=== PATIENT | female | born 1985 | race Caucasian/White ===

== ENCOUNTER → 2016-12-15 | Outpatient (CLI) | payer MEDICAID | LOC: RAD 13:00 | PROVIDERS: ATTEND Specialist | DX: C48.0 Malignant neoplasm of retroperitoneum (principal) | CPT/HCPCS: 71260; 74177 ==

== ENCOUNTER → 2017-04-10 | Outpatient (CLI) | payer MEDICAID | LOC: RAD 12:12 | PROVIDERS: ATTEND Specialist | DX: C48.0 Malignant neoplasm of retroperitoneum (principal) | CPT/HCPCS: 71260; 74177 ==

== ENCOUNTER → 2017-04-26 | Outpatient (CLI) | payer MEDICAID ==
--- NOTE | 2017-04-27 08:26 | RADIOLOGY REPORT (SQ) ---
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 CONTRAST TYPE AND DOSE: 20 mL Prohance. RENAL FUNCTION: GFR > 60. LIMITATIONS: None. FINDINGS: LIVER: In the posterior right lobe sub- diaphragmatic surface for, segment 7, a 2 x 1.7 cm mass is present with lobular contour, increased T2 and decreased T1 signal with spotty contrast enha ncement. This is new compared to prior imaging from 2015 and similar compared to CT 04/10/2017. This worrisome for a metastatic nodule. More inferiorly in the right lobe liver along segment 6, a subcentimeter nodule is present which is s imilar compared to prior studies. 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 Remainder of the liver is otherwise unremarkable. There is ferromagnetic artifact from surgical clip s along the hepatic vena cava. SPLEEN: Normal size. No focal lesions. PANCREAS: No masses. No adjacent inflammation or peripancreatic fluid collections. Pancreatic duct no t dilated. GALLBLADDER: Surgically absent ADRENAL GLANDS: No significant masses or asymmetry. RIGHT KIDNEY AND URETER: Surgically absent LEFT KIDNEY AND URETER: No masses. No hydronephrosis. AORTA AND VESSELS: No aneurysm. No dissection. Renal arteries, SMA, celiac without stenosis. There i s a prominent left gonadal vein, related to surgical resection of a short segment of the inferior charlene a cava at the right nephrectomy bed. This is similar compared to prior studies. RETROPERITONEUM: No retroperitoneal adenopathy, hemorrhage or masses. BOWEL: Limited visualization. ABDOMINAL WALL AND PERITONEUM: No hernias. No free fluid. BONES: There is fatty change in the rightward half of the T12 through L2 vertebral bodies related to radiation therapy in the right nephrectomy bed OTHER: No other significant finding. IMPRESSION: 2 x 1.7 cm liver mass worrisome for metastatic disease. TECHNICAL DOCUMENTATION: JOB ID: [id number]- All Rights Reserved
== END ==
LOC: RAD 16:03
PROVIDERS: ATTEND Specialist
DX: C48.0 Malignant neoplasm of retroperitoneum (principal)
CPT/HCPCS: 74183; A9576

== ENCOUNTER → 2017-06-30 | Outpatient (CLI) | payer MEDICARE, MEDICAID ==
--- NOTE | 2017-07-02 14:19 | RADIOLOGY REPORT (SQ) ---
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 TECHNIQUE: Blood glucose level was verified. Above dose of FDG was injected intravenously. 2-D seg mented attenuation correction images were obtained from the base of the skull to the midthighs. Nonc ontrast CT images were obtained for attenuation correction and fusion with emission images. CT image s were performed without oral or intravenous contrast and are not sensitive for parenchymal lesions. A series of overlapping emission PET images were obtained. [facility] by the radiologist. Images stored on PACS. LIMITATIONS: None. FINDINGS: HEAD AND NECK: No areas of abnormal metabolic activity in the soft tissues of the head and neck. CHEST: No areas of abnormal metabolic activity in the chest. ABDOMEN AND PELVIS: In the right lobe liver, fiducial markers are present. Adjacent to the fiducial markers, a 2.8 x 2.3 cm nodule is present on axial image 104 with SUV of 11.1 (was 1.8 x 1.5 cm in s ize on 04/10/2017 CT). PROXIMAL LOWER EXTREMITIES: No areas of abnormal metabolic activity in the soft tissues of the lower extremities. BONES: There is a new lytic destructive lesion in the left acetabular roof 1.2 x 0.8 cm in diameter o n axial image 198 with SUV of 8. ADDITIONAL CT FINDINGS: Right permanent central line tip superior vena cava. Post right nephrectomy. Prominence of the azygos vein and christie azygous vein in the lower chest and upper abdomen post parti al resection of the IVC, right permanent central line tip superior vena cava OTHER: Baseline liver activity 2.0 SUV, blood pool activity 1.6 SUV IMPRESSION: Increase in size of hypermetabolic right lobe liver lesion since 04/10/2017 New hypermetabolic lytic lesion in the left acetabular roof TECHNICAL DOCUMENTATION: JOB ID: [id number]- All Rights Reserved
== END ==
LOC: RAD 11:47
PROVIDERS: ATTEND Internal Medicine
DX: C48.0 Malignant neoplasm of retroperitoneum (principal)
CPT/HCPCS: 78815; A9552

== ENCOUNTER → 2017-11-05 | Outpatient (CLI) | payer MEDICARE, MEDICAID ==
--- NOTE | 2017-11-06 18:37 | RADIOLOGY REPORT (SQ) ---
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 TECHNIQUE: Blood glucose level was verified. Above dose of FDG was injected intravenously. 2-D seg mented attenuation correction images were obtained from the base of the skull to the midthighs. Nonc ontrast CT images were obtained for attenuation correction and fusion with emission images. CT image s were performed without oral or intravenous contrast and are not sensitive for parenchymal lesions. A series of overlapping emission PET images were obtained. Images reviewed and manipulated at [facility] work station by the radiologist. Images stored on PACS. LIMITATIONS: None. FINDINGS: HEAD AND NECK: No areas of abnormal metabolic activity in the soft tissues of the head and neck. CHEST: No areas of abnormal metabolic activity in the chest. ABDOMEN AND PELVIS: In the posterior right lobe liver, radiotherapy markers are present. An adjacent 1.1 cm nodule is present with SUV of 3.1 (was 2.8 x 2.3 cm, SUV 11.1 on 06/30/2017 PET-CT). PROXIMAL LOWER EXTREMITIES: No areas of abnormal metabolic activity in the soft tissues of the lower extremities. BONES: The left acetabular roofs lytic lesion currently measures 1.5 x 1.5 cm in size with SUV 1.3 (w as 1.2 x 0.8 cm in size with SUV of 8 on 06/30/2017). ADDITIONAL CT FINDINGS: Right-sided permanent central line tip superior vena cava. Right nephrectomy and partial resection of the inferior vena cava with enlarged azygos and christie azygous veins in the l ower chest and upper abdomen. OTHER: Liver background activity 1.5 SUV. Blood pool background activity 1.2 SUV IMPRESSION: Treatment response of right lobe liver and left acetabular roof metastatic lesions TECHNICAL DOCUMENTATION: JOB ID: [id number] [employer]- All Rights Reserved
== END ==
LOC: RAD 17:43
PROVIDERS: ATTEND Internal Medicine
DX: C48.0 Malignant neoplasm of retroperitoneum (principal)
CPT/HCPCS: 78815; A9552

== ENCOUNTER 2017-12-26 14:04 | Outpatient (CLI) | payer MEDICARE, MEDICAID ==
[~2017-12-26 14:04] MED LIST: FERRIC CARBOXYMALTOSE 750 MG in NORMAL SALINE 250 ML IV PRN; NORMAL SALINE 1000 ML 1,000 ML IV PRN; NORMAL SALINE 250 ML IV PRN
[2017-12-26 14:28] VITALS: BP 100/73
== END 2017-12-26 15:40 | disposition home or self-care (01) ==
LOC: II 14:04 → 5TH 14:29 → II 15:40
PROVIDERS: ATTEND Specialist
PROC: 3E0437Z Introduction of Electrolytic and Water Balance Substance into Central Vein, Percutaneous Approach (ICD-10-PCS; principal; 2017-12-26)
DX: E86.0 Dehydration (principal); C48.0 Malignant neoplasm of retroperitoneum
CPT/HCPCS: 96360; J1439; J7050

== ENCOUNTER 2018-01-21 22:31 | Emergency (ER) | payer MEDICARE, MEDICAID ==
[2018-01-21] MEDS ORDERED: HALOPERIDOL LACTATE INJ 5 MG/1 ML VIAL IV ONE (23:40)
[2018-01-21] MEDS ORDERED: NORMAL SALINE 1000 ML 1,000 ML IV ONE (23:40)
[2018-01-21] MEDS ORDERED: PROCHLORPERAZINE EDISYLATE INJ 10 MG/2 ML VIAL IV ONE (23:41)
--- NOTE | 2018-01-21 23:42 | ER Document Report ---
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 Patient arrives by EMS complaining of nausea and whole body pain including a headache. She does describe a dull, constant throbbing headache that is worsened by lights, sounds, movement, and has been associated with vomiting. She states the headache has been gradual in onset and progressively worsened over the last 24 hours. She notes a history of similar headaches in the past. She has not tried anything to improve or worsen her pain. She does admit that she is out of her chronic pain medications and is not able to refill them until tomorrow which is 1 of her reasons for coming to the emergency department today. She has not spoken to her primary care or oncology doctors regarding today's concerns. TRAVEL OUTSIDE OF THE [place] IN LAST 30 DAYS: No - Related Data Allergies/Adverse Reactions: ibuprofen [From Advil] Allergy (Severe, Verified 10/16/15 10:27) RASH tramadol [Tramadol] Adverse Reaction (Severe, Verified 10/16/15 10:27) dizzy Past Medical History - General Information source: Patient - Social History Smoking Status: Never Smoker Chew tobacco use (# tins/day): No Frequency of alcohol use: None Drug Abuse: None Lives with: Family Family History: Reviewed & Not Pertinent Patient has suicidal ideation: No Patient has homicidal ideation: No - Past Medical History Cardiac Medical History: Denies: Hx Coronary Artery Disease, Hx Heart Attack, Hx Hypertension Pulmonary Medical History: Denies: Hx Asthma, Hx Bronchitis, Hx COPD, Hx Pneumonia Neurological Medical History: Denies: Hx Cerebrovascular Accident, Hx Seizures Renal/ Medical History: Denies: Hx Peritoneal Dialysis Musculoskeltal Medical History: Denies Hx Arthritis Past Surgical History: Reports: Hx Cholecystectomy, Hx Kidney (Renal Surgery) - Right kidney removed, Hx Tubal Ligation - Immunizations Immunizations up to date: Yes Hx Diphtheria, Pertussis, Tetanus Vaccination: Yes Review of Systems - Review of Systems Notes: Constitutional: Negative for fever. HENT: Negative for sore throat. Eyes: Negative for visual changes. Cardiovascular: Negative for chest pain. Respiratory: Negative for shortness of breath. Gastrointestinal: Negative for abdominal pain, vomiting or diarrhea. Genitourinary: Negative for dysuria. Musculoskeletal: Positive for chronic Skin: Negative for rash. Neurological: Positive for headache 10 point ROS negative except as marked above and in HPI. Physical Exam - Vital signs Vitals: Temp Pulse Resp BP Pulse Ox 98.8 F 88 20 111/77 60 L 01/21/18 22:36 01/21/18 22:36 01/21/18 22:36 01/21/18 22:36 01/21/18 22:36 Interpretation: Normal - Documented hypoxia is not accurate Notes: PHYSICAL EXAMINATION: GENERAL: Appears moderately uncomfortable but in no acute distress HEAD: Atraumatic, normocephalic. EYES: Pupils equal round and reactive to light, extraocular movements intact, sclera anicteric, conjunctiva are normal. ENT: nares patent, oropharynx clear without exudates. Moist mucous membranes. NECK: Normal range of motion, supple without lymphadenopathy LUNGS: Breath sounds clear to auscultation bilaterally and equal. No wheezes rales or rhonchi. HEART: Regular rate and rhythm without murmurs ABDOMEN: Soft, nontender, normoactive bowel sounds. No guarding, no rebound. No masses appreciated. EXTREMITIES: Normal range of motion, no pitting or edema. No cyanosis. NEUROLOGICAL: Face symmetric. Tongue protrudes midline. Extraocular motions intact. Pupils are 2 mm and equally reactive. Normal speech, normal gait. 5 out of 5 strength in both the distal and proximal upper and lower extremities bilaterally. Sensation is grossly intact throughout. Finger to nose testing normal. Pronator drift normal. PSYCH: Moderately anxious SKIN: Warm, Dry, normal turgor, no rashes or lesions noted. Course - Re-evaluation Re-evalutation: 01/21/18 23:42 Presentation of a headache that appears to be most consistent with tension versus migrainous type headache. Headache was not maximal in onset, patient has no focal neurologic deficits, no nuchal rigidity, vital signs within normal limits, no papilledema, and patient is overall well in appearance. Based on clinical history and examination I do not suspect an acute subarachnoid hemorrhage, dural venous sinus thrombosis, acute meningitis, or intercranial mass. Patient does have a history of multiple malignancies in the past and so I will obtain a CT of the head as a precautionary measure although I do have a very low clinical suspicion for a metastatic disease as the etiology of her headache today. Will provide a migraine cocktail reassess the patient. 01/22/18 00:37 Patient has had improvement of her headache and although she does report some ongoing headache she is actually asleep when I walk into the room. I have informed her that she go home and try to rest, and follow-up with primary care doctor in the morning. CT of the head does not demonstrate any evidence of intracranial metastases and I do have a quite low clinical suspicion for this and do not believe acute MRI imaging is indicated. I have however inform the patient that if her headache does persist however she will need to follow-up with her primary care doctor for an MRI of the brain to further clarify. At this time will discharge with return precautions and follow-up recommendations. Verbal discharge instructions given a the bedside and opportunity for questions given. Medication warnings reviewed. Patient is in agreement with this plan and has verbalized understanding of return precautions and the need for primary care follow-up in the next 24-72 hours. - Vital Signs Vital signs: Temp Pulse Resp BP Pulse Ox 98.8 F 88 20 111/77 60 L 01/21/18 22:36 01/21/18 22:36 01/21/18 22:36 01/21/18 22:36 01/21/18 22:36 - Diagnostic Test Radiology reviewed: Image reviewed, Reports reviewed Radiology results interpreted by me: 01/22/18 00:30 CT head: No acute intracranial mass or bleed Discharge - Discharge Clinical Impression: Total body pain Headache Qualifiers: Headache type: unspecified Headache chronicity pattern: acute headache Intractability: not intractable Qualified Code(s): R51 - Headache Condition: Good Disposition: HOME, SELF-CARE Additional Instructions: You have been seen in the Emergency Department (ED) for a headache. Please use Tylenol (acetaminophen) as needed for symptoms, but only as written on the box. As we have discussed, please follow up with your primary care doctor as soon as possible regarding today's ED visit and your headache symptoms. Call your doctor or return to the ED if you have a worsening headache, sudden and severe headache, confusion, slurred speech, facial droop, weakness or numbness in any arm or leg, extreme fatigue, or other symptoms that concern you. Referrals: JOSE EDUARDO MARTINEZ MD [Primary Care Provider] - Follow up as needed
--- NOTE | 2018-01-22 00:18 | RADIOLOGY REPORT (SQ) ---
EXAM DESCRIPTION: CT HEAD WITHOUT CLINICAL HISTORY: headache, hx cancer COMPARISON: None available TECHNIQUE: Axial CT of the head obtained from the skull apex to the skull base without contrast. FINDINGS: No acute intracranial hemorrhage identified. No mass, mass effect, shift of the midline, abnormal extra-axial fluid collection or CT evidence of acute ischemic change identified. The ventricular system is unremarkable. No acute abnormalities of the supratentorial white matter, basal ganglia, cerebellum, or brainstem. The visualized paranasal sinuses and the mastoids are clear. No skull fracture identified. Visualized orbits and globes are unremarkable. DLP:1162.97 mGy-cm IMPRESSION: 1. No acute intracranial abnormality identified. 2. No intracranial mass or evidence of intracranial metastatic disease by noncontrast CT criteria. If this remains a concern contrast-enhanced MRI of the brain would provide more complete characterization. This exam was performed according to our departmental dose-optimization program, which includes automated exposure control, adjustment of the mA and/or kV according to patient size and/or use of iterative reconstruction technique.
[2018-01-22 00:53] VITALS: BP 108/67
== END 2018-01-22 00:53 | disposition home or self-care (01) ==
LOC: ER 22:31
DX: M79.1 Myalgia (principal); G89.29 Other chronic pain; R51 Headache; Z90.49 Acquired absence of other specified parts of digestive tract; Z98.51 Tubal ligation status; Z90.5 Acquired absence of kidney
CPT/HCPCS: 99284; 96361; 96374; 96375; 70450; J1630; J0780; J7030

== ENCOUNTER → 2018-02-11 | Outpatient (CLI) | payer MEDICARE, MEDICAID ==
--- NOTE | 2018-02-12 19:34 | RADIOLOGY REPORT (SQ) ---
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 TECHNIQUE: Blood glucose level was verified. Above dose of FDG was injected intravenously. 2-D seg mented attenuation correction images were obtained from the base of the skull to the midthighs. Nonc ontrast CT images were obtained for attenuation correction and fusion with emission images. CT image s were performed without oral or intravenous contrast and are not sensitive for parenchymal lesions. A series of overlapping emission PET images were obtained. Images reviewed and manipulated at [facility] work station by the radiologist. Images stored on PACS. LIMITATIONS: None. FINDINGS: HEAD AND NECK: There is bilateral pharyngeal tonsil activity without enlargement. Tonsils have SUV of the T2. Question inflammation. CHEST: Multiple new tiny lung nodules are present. The largest of these is 8 mm in size left upper l obe image 76 which demonstrates faint metabolic activity. Next largest is 6 mm in the left lower lob e image 86. No metabolically active mediastinal adenopathy. ABDOMEN AND PELVIS: Radiotherapy treatment markers are present in the posterior right lobe liver. A 3 cm hypodense nodule between the markers is present on axial image 112 with SUV 3.1 (was 1.1 cm in s ize with SUV 3.1 on 11/05/2017). PROXIMAL LOWER EXTREMITIES: No areas of abnormal metabolic activity in the soft tissues of the lower extremities. BONES: Sclerotic Lesion right acetabular roof 1.5 cm in size, SUV 2.7. This is new compared to prior studies. Left acetabular roof lytic lesion is non metabolic on today's study. ADDITIONAL CT FINDINGS: Right permanent central line tip superior vena cava. Old right nephrectomy w ith resection of a portion of the inferior vena cava and enlarged azygos and christie azygous veins in th e chest OTHER: Liver background activity 1.7 SUV. Blood pool activity 1.3 SUV IMPRESSION: Multiple new tiny lung nodules are present Slight increase in size of liver lesions compared to previous PET-CT, stable metabolic activity TECHNICAL DOCUMENTATION: JOB ID: [id number]- All Rights Reserved Reading location - IP/workstation name: [email or web address]
== END ==
LOC: RAD 16:46
PROVIDERS: ATTEND Internal Medicine
DX: C48.0 Malignant neoplasm of retroperitoneum (principal)
CPT/HCPCS: 78815; A9552

== ENCOUNTER → 2018-03-19 | Outpatient (CLI) | payer MEDICAID, MEDICARE ==
--- NOTE | 2018-03-19 16:14 | RADIOLOGY REPORT (SQ) ---
EXAM DESCRIPTION: CT CHEST WITH COMPLETED DATE/TIME: 03/19/2018 3:52 pm REASON FOR STUDY: MALIGNANT NEOPLASM OF RETROPERITONEUM (C48.0) C48.0 MALIGNANT NEOPLASM OF RETROPE RITONEUM COMPARISON: 04/10/2017. Correlation: PET-CT 02/11/2018. TECHNIQUE: CT scan of the chest performed using helical scanning technique with dynamic intravenous contrast injection. Images reviewed with lung, soft tissue and bone windows. Reconstructed coronal and sagittal MPR images reviewed. All images stored on PACS. All CT scanners at this facility use dose modulation, iterative reconstruction, and/or weight based d osing when appropriate to reduce radiation dose to as low as reasonably achievable (ALARA). [facility]: Dose Right [facility]: CareDose [facility]: Dose Right [facility]: Teradose 4D [facility]: [email or web address] CONTRAST TYPE AND DOSE: See separate report of the same date. RENAL FUNCTION: See separate report of the same date. RADIATION DOSE: . LIMITATIONS: None. FINDINGS: LUNGS AND PLEURA: There are scattered pulmonary nodules which are stable from the most rec ent PET-CT. There are new ground-glass nodules in the right lower lobe, the largest about 10 mm. Th ere is a new 5 mm nodule in the right upper lobe on image 40. No effusions. HILAR AND MEDIASTINAL STRUCTURES: No identified masses or abnormal nodes. HEART AND VASCULAR STRUCTURES: No aneurysm or dissection. No central pulmonary emboli. No pericardi al effusion. HARDWARE: Right-sided port with tip in the SVC. UPPER ABDOMEN: See separate report of the CT of the abdomen. THYROID AND OTHER SOFT TISSUES: No masses. No adenopathy. BONES: No significant finding. OTHER: No other significant finding. IMPRESSION: Several stable pulmonary nodules as well as new ground-glass nodules in the right lower lobe. No dominant mass. TECHNICAL DOCUMENTATION: JOB ID: [id number] Quality ID # [id number]: Final reports with documentation of one or more dose reduction techniques (e.g., Au tomated exposure control, adjustment of the mA and/or kV according to patient size, use of iterative reconstruction technique) 2010 [employer]- All Rights Reserved Reading location - IP/workstation name: [email or web address]
--- NOTE | 2018-03-19 16:44 | RADIOLOGY REPORT (SQ) ---
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 No oral contrast. Images reviewed with lung, soft tissue, and bone windows. Reconstructed coronal and sagittal MPR images reviewed. Delayed images for evaluation of the urinary system also acquired. All images stored on PACS. All CT scanners at this facility use dose modulation, iterative reconstruction, and/or weight based d osing when appropriate to reduce radiation dose to as low as reasonably achievable (ALARA). [facility]: Dose Right [facility]: CareDose [facility]: Dose Right [facility]: Teradose 4D [facility]: TempMine CONTRAST TYPE AND DOSE: contrast/concentration: Isovue 300.00 mg/ml; Total Contrast Delivered: 45.0 ml; Total Saline Delivered: 66.0 ml RENAL FUNCTION: Creatinine 1.0 BUN=18 RADIATION DOSE: CT Rad equipment meets quality standard of care and radiation dose reduction techniq ues were employed. CTDIvol: 4.4 - 5.6 mGy. DLP: 732 mGy-cm.. LIMITATIONS: None. FINDINGS: LOWER CHEST: Please see CT chest report. LIVER: The liver is heterogenous in appearance. There are multiple clips in the dome of the liver a nd subdiaphragmatic surface right hepatic lobe, new findings since the prior study. As on the prior examination, a hypoattenuated slightly enhancing lesion in the subdiaphragmatic right hepatic lobe wh ich appears slightly larger than on the prior study. It is difficult to measure the lesion due to th e artifact from the clips. A new slightly enhancing, hypoattenuated lesion along the medial aspect of the right hepatic lobe, ax ial image 34, series 3, measure 2.4 cm x 2.4 cm, considerations for this finding includes metastatic lesion. Hepatomegaly. The hepatic and portal veins appear patent. SPLEEN: Normal size. No focal lesions. PANCREAS: No masses. No significant calcifications. No adjacent inflammation or peripancreatic fluid collections. Pancreatic duct not dilated. GALLBLADDER: Prior cholecystectomy. ADRENAL GLANDS: No significant masses or asymmetry. RIGHT KIDNEY AND URETER: Prior right nephrectomy and stable post surgical changes. Stable collatera l vessels, azygos vein collaterals in the lower chest. LEFT KIDNEY AND URETER: No solid masses. No significant calcifications. No hydronephrosis or hydr oureter. AORTA AND VESSELS: No aneurysm. No dissection. Renal arteries, SMA, celiac without stenosis. RETROPERITONEUM: No retroperitoneal adenopathy, hemorrhage or masses. BOWEL AND PERITONEAL CAVITY: No masses or inflammatory changes. No free fluid or peritoneal masses. APPENDIX: Normal. PELVIS: Interval resolution of the complex left ovarian cyst. No free fluid. ABDOMINAL WALL: No masses. No hernias. BONES: New lucent lesions in the supra-acetabular regions bilaterally, slightly larger on the left r aises the question of metastatic disease. No evidence of acute fracture. OTHER: No other significant finding. IMPRESSION: 1 The previously described slightly enhancing, hypoattenuated lesion in the subdiaphragm atic surface right hepatic lobe appears slightly larger in size than on the examination dated 04/10/20 17. The margins of the lesion are partially obscured by new surrounding surgical clips. There is al so a new hypoattenuated, slightly enhancing right hepatic lobe lesion. These findings suggest metast atic disease. 2 New lucent lesions within the supra-acetabular regions, larger on the left. Considerations for the se findings include osseous metastatic lesions. 3 Interval resolution of the complex left ovarian cyst. 4. Additional stable findings as above. TECHNICAL DOCUMENTATION: JOB ID: [id number] Quality ID # [id number]: Final reports with documentation of one or more dose reduction techniques (e.g., Au tomated exposure control, adjustment of the mA and/or kV according to patient size, use of iterative reconstruction technique) 2010 [employer]- All Rights Reserved Reading location - IP/workstation name: [email or web address]
== END ==
LOC: RAD 12:58
PROVIDERS: ATTEND Internal Medicine
DX: C48.0 Malignant neoplasm of retroperitoneum (principal); R91.8 Other nonspecific abnormal finding of lung field
CPT/HCPCS: 71260; 74177

== ENCOUNTER → 2018-04-11 | Outpatient (CLI) | payer MEDICARE, MEDICAID ==
[2018-04-11 17:51] LABS: ALANINE AMINOTRANSFERASE 24 U/L (9-52); ALBUMIN 3.8 g/dL (3.5-5.0); ALKALINE PHOSPHATASE 107 U/L (38-126); ANION GAP 14 (5-19); ASPARTATE AMINO TRANSFERASE 32 U/L (14-36); BILIRUBIN,DIRECT 0.5 mg/dL (0.0-0.4); BILIRUBIN,TOTAL 0.6 mg/dL (0.2-1.3); BLOOD UREA NITROGEN 12 mg/dL (7-20); CALCIUM 8.8 mg/dL (8.4-10.2); CARBON DIOXIDE 24 mmol/L (22-30); CHLORIDE 107 mmol/L (98-107); GLUCOSE 77 mg/dL (75-110); POTASSIUM 4.1 mmol/L (3.6-5.0); SODIUM 145.1 mmol/L (137-145); TOTAL PROTEIN 6.5 g/dL (6.3-8.2)
== END ==
LOC: OD 16:01
PROVIDERS: ATTEND Internal Medicine
DX: C48.0 Malignant neoplasm of retroperitoneum (principal)
CPT/HCPCS: 36415; 80053

== ENCOUNTER 2018-04-13 08:53 | Inpatient (IN) | payer MEDICARE, MEDICAID ==
[2018-04-13] MEDS ORDERED: NORMAL SALINE 1000 ML 1,000 ML IV ONE (09:12)
[2018-04-13] MEDS ORDERED: ONDANSETRON HCL INJ/PF 4 MG/2 ML SDV IV ONE (09:12)
[2018-04-13] MEDS ORDERED: HALOPERIDOL LACTATE INJ 5 MG/1 ML VIAL IV ONE (09:26)
[2018-04-13 09:50] LABS: ABSOLUTE LYMPHOCYTES (AUTO) 1.7 10^3/uL (0.5-4.7); ABSOLUTE MONOCYTES (AUTO) 0.3 10^3/uL (0.1-1.4); ABSOLUTE NEUT (AUTO) 3.8 10^3/uL (1.7-8.2); BASOPHILS % (AUTO) 0.6 % (0-2); EOSINOPHILS % (AUTO) 0.4 % (0-6); HEMATOCRIT 42.9 % (36.0-47.0); HEMOGLOBIN 14.6 g/dL (12.0-15.5); LYMPHOCYTES % (AUTO) 28.4 % (13-45); MEAN CORPUSCULAR HEMOGLOBIN 31.6 pg (27.0-33.4); MEAN CORPUSCULAR HGB CONC 34.1 g/dL (32.0-36.0); MEAN CORPUSCULAR VOLUME 93 fl (80-97); MONOCYTES % (AUTO) 5.4 % (3-13); PLATELET COUNT 220 10^3/uL (150-450); RED BLOOD COUNT 4.61 10^6/uL (3.72-5.28); RED CELL DISTRIBUTION WIDTH 13.5 % (11.5-14.0); SEGMENTED NEUTROPHILS % (AUTO) 65.2 % (42-78); TOTAL CELLS COUNTED % (AUTO) 100 %; WHITE BLOOD COUNT 5.8 10^3/uL (4.0-10.5)
[2018-04-13 10:25] LABS: ALANINE AMINOTRANSFERASE 28 U/L (9-52); ALBUMIN 4.5 g/dL (3.5-5.0); ALKALINE PHOSPHATASE 106 U/L (38-126); ANION GAP 16 (5-19); ASPARTATE AMINO TRANSFERASE 27 U/L (14-36); BILIRUBIN,DIRECT 0.4 mg/dL (0.0-0.4); BILIRUBIN,TOTAL 0.5 mg/dL (0.2-1.3); BLOOD UREA NITROGEN 18 mg/dL (7-20); CALCIUM 9.9 mg/dL (8.4-10.2); CARBON DIOXIDE 25 mmol/L (22-30); CHLORIDE 107 mmol/L (98-107); GLUCOSE 122 mg/dL (75-110); LIPASE 97.4 U/L (23-300); POTASSIUM 3.7 mmol/L (3.6-5.0); TOTAL PROTEIN 7.8 g/dL (6.3-8.2)
[2018-04-13] MEDS ORDERED: HYDROMORPHONE HCL INJ/PF 2 MG/ML AMPULE IV ONE (11:26)
--- NOTE | 2018-04-13 11:46 | ER Document Report ---
ED GI/ - General Chief Complaint: Vomiting Stated Complaint: VOMITING Time Seen by Provider: 04/13/18 09:12 Mode of Arrival: Ambulatory Information source: Patient Notes: Pt is a 33 year old female who presents to the ER today for nasuea/vomiting x 2 days after starting a new trial of chemo last week. Pt has kidney cancer and liver metastasis, is a pt of Dr. Lindsay. She states she hasn't been able to keep anything down or stop vomiting since yesterday. Denies diarrhea. TRAVEL OUTSIDE OF THE [place] IN LAST 30 DAYS: No - Related Data Allergies/Adverse Reactions: ibuprofen [From Advil] Allergy (Severe, Verified 10/16/15 10:27) RASH tramadol [Tramadol] Adverse Reaction (Severe, Verified 10/16/15 10:27) dizzy Past Medical History - General Information source: Patient - Social History Smoking Status: Unknown if Ever Smoked Family History: Reviewed & Not Pertinent Patient has suicidal ideation: No Patient has homicidal ideation: No - Past Medical History Cardiac Medical History: Denies: Hx Coronary Artery Disease, Hx Heart Attack, Hx Hypertension Pulmonary Medical History: Denies: Hx Asthma, Hx Bronchitis, Hx COPD, Hx Pneumonia Neurological Medical History: Denies: Hx Cerebrovascular Accident, Hx Seizures Renal/ Medical History: Denies: Hx Peritoneal Dialysis Musculoskeltal Medical History: Denies Hx Arthritis Past Surgical History: Reports: Hx Cholecystectomy, Hx Kidney (Renal Surgery) - Right kidney removed, Hx Tubal Ligation - Immunizations Immunizations up to date: Yes Hx Diphtheria, Pertussis, Tetanus Vaccination: Yes Review of Systems - Review of Systems Constitutional: No symptoms reported EENT: No symptoms reported Cardiovascular: No symptoms reported Respiratory: No symptoms reported Gastrointestinal: See HPI Genitourinary: See HPI Female Genitourinary: No symptoms reported Musculoskeletal: No symptoms reported Skin: No symptoms reported Hematologic/Lymphatic: No symptoms reported Neurological/Psychological: No symptoms reported Physical Exam - Vital signs Vitals: Temp Pulse Resp BP Pulse Ox 98.5 F 77 19 123/89 H 100 04/13/18 09:44 04/13/18 09:44 04/13/18 09:44 04/13/18 09:44 04/13/18 09:44 - Notes Notes: PHYSICAL EXAMINATION: GENERAL: Actively vomiting, in mild acute distress. HEAD: Atraumatic, normocephalic. EYES: Pupils equal round and reactive to light, extraocular movements intact, sclera anicteric, conjunctiva are normal. ENT: ear canals without erythema or foreign body, TMs pearly kerns with good bony landmarks, nares patent, oropharynx clear without exudates. Moist mucous membranes. airway patent NECK: Normal range of motion, supple without lymphadenopathy LUNGS: CTAB and equal. No wheezes rales or rhonchi. HEART: Regular rate and rhythm without murmurs ABDOMEN: Soft, no tenderness. No guarding, no rebound BACK: no vertebral tenderness, normal ROM GI/: no CVA tenderness EXTREMITIES: Normal range of motion, no pitting edema. No cyanosis. NEUROLOGICAL: Cranial nerves grossly intact. Normal sensory/motor exams. PSYCH: Normal mood, normal affect. SKIN: Warm, Dry, normal turgor, no rashes or lesions noted Course - Re-evaluation Re-evalutation: 04/13/18 11:45 Nena Johnson, nurse practitioner hospitalist accepts admission at this time, Dr. Barnett would like her admitted for at least 24 hours for IV fluid resuscitation. Patient has not vomited since being given Zofran and Haldol. She does continue to complain of a headache. Dilaudid ordered. Lab work unremarkable today. 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
[2018-04-13] MEDS ORDERED: PROMETHAZINE HCL INJ 25 MG/1 ML VIAL IV PRN (13:04)
[2018-04-13] MEDS ORDERED: HYDROMORPHONE HCL INJ/PF 2 MG/ML AMPULE IV PRN (13:13)
[2018-04-13] MEDS ORDERED: ENOXAPARIN SODIUM INJ 30 MG/0.3 ML DISP.SYRIN SUBCUT ONE (14:00)
[2018-04-13] MEDS: NORMAL SALINE 1000 ML 1,000 ML IV PRN ×2 (15:53→22:09)
[2018-04-13] MEDS ORDERED: ALPRAZOLAM 0.25 MG TABLET PO PRN (16:49)
[2018-04-13] MEDS ORDERED: (PENDING PHARMACY ID) (Ondansetron [Ondansetron Odt] 8 MG) SL PRN (16:49)
--- NOTE | 2018-04-13 16:49 | PDOC H&P ---
History of Present Illness Admission Date/PCP: 04/13/18 12:37 JOSE EDUARDO MARTINEZ MD Patient complains of: Headache. Nausea and vomiting. History of Present Illness: CAMILA DAWN is a 33 year old female who presents to the emergency department with a one-day history of headache, nausea, and vomiting. She states that her symptoms started shortly after receiving chemotherapy. 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 The patient states that her headache is localized behind both of her eyes, the pain is constant and she describes the pain as throbbing. + Photophobia. +Sound sensitivity. She denies any visual changes or neck pain. The patient states her headache severity is 5/ 5. While in the emergency department, the patient was given zofran and haldol as well as a 1L IVF bolus. Following these therapies, she states the severity of her headache is a 3/5. Her initial VS were relatively normal BP 123/89 HR 77 T 98.5 RR 19 SPO2 100% on room air. Her lab work was unremarkable, with the exception of her HYPERnatremia (Na 145). Upon assessment, the patient was resting in bed on room air. She is drowsy but arousable and answers all questions appropriately. She speask in a soft tone and requests the lights to remain off. The patient states she is still experiencing a headache, but her symptoms have mildly resolved. She denies feeling nauseated, she is not actively vomiting, denies dysuria or diarrhea. The plan is to admit the patient to the hospitalist service for dehydration and intractable pain. 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 Past Medical History Malignancy Medical History: Reports: Other - Sarcoma soft tissue: Present in lungs, liver, bone, right kidney, pancreas Musculoskeltal Medical History: Denies: Arthritis Hematology: Denies: Anemia Past Surgical History Past Surgical History: Reports: Cholecystectomy, Tubal Ligation, Other - RIGHT NEPHRECTOMY Social History Information Source: Patient Smoking Status: Former Smoker Number of Years Smokin Frequency of Alcohol Use: None Hx Recreational Drug Use: No Drugs: None Hx Prescription Drug Abuse: No - Advance Directive Resuscitation Status: Full Code Family History Family History: Hypertension Parental Family History Reviewed: Yes - Father: diabetes, HTN. Mother: HTN Children Family History Reviewed: Yes Sibling(s) Family History Reviewed.: Unknown Medication/Allergy Home Medications: Alprazolam [Xanax 0.25 mg Tablet] 0.25 mg PO DAILYP PRN 04/13/18 Gabapentin [Neurontin 300 mg Capsule] 300 mg PO Q8 04/13/18 Ondansetron [Ondansetron Odt] 8 mg SL Q8HP PRN 04/13/18 Oxycodone HCl [Oxycodone HCl 10 MG Tablet] 10 mg PO Q4HP PRN 04/13/18 Oxycodone HCl [Oxycontin] 60 mg PO Q12 04/13/18 Prochlorperazine Maleate [Compazine 5 mg Tablet] 5 mg PO Q8HP PRN 04/13/18 Ranitidine HCl [Zantac 150 mg Tablet] 150 mg PO BID 04/13/18 Allergies/Adverse Reactions: ibuprofen [From Advil] Allergy (Severe, Verified 10/16/15 10:27) RASH tramadol [Tramadol] Adverse Reaction (Severe, Verified 10/16/15 10:27) dizzy Review of Systems All systems: reviewed and no additional remarkable complaints except as stated Physical Exam Vital Signs: Temp Pulse Resp BP Pulse Ox 98.5 F 77 19 123/89 H 100 04/13/18 09:44 04/13/18 09:44 04/13/18 09:44 04/13/18 09:44 04/13/18 09:44 General appearance: PRESENT: no acute distress, thin Eye exam: PRESENT: conjunctiva pink, PERRLA Mouth exam: PRESENT: moist Neck exam: PRESENT: full ROM Respiratory exam: PRESENT: clear to auscultation emilia, symmetrical, unlabored Cardiovascular exam: PRESENT: RRR, +S1, +S2 Pulses: PRESENT: normal radial pulses, +1 pedal pulses bilateral GI/Abdominal exam: PRESENT: normal bowel sounds, soft. ABSENT: tenderness Rectal exam: PRESENT: deferred Extremities exam: PRESENT: full ROM Musculoskeletal exam: PRESENT: ambulatory, full ROM Neurological exam: PRESENT: awake, oriented to person, oriented to place, oriented to time, oriented to situation Psychiatric exam: PRESENT: appropriate affect Skin exam: PRESENT: dry, intact Results Status: Imported from PACS Assessment & Plan - Diagnosis (1) Intractable vomiting with nausea Qualifiers: Vomiting type: unspecified Qualified Code(s): R11.2 - Nausea with vomiting , unspecified Is this a current diagnosis for this admission?: Yes Plan: Nausea and vomiting 24 hours after receiving chemotherapy, likely side effects of new chemotherapy drug. Promethazine as needed. 1L IVF bolus in emergency department. Maintenance IVF @ 150mL/hr Good skin turgor. Moist mucous membranes. Patient reports that she is making urine. Lab work does not indicate severe dehydration or DEBI. Plan for rehydration with IV fluids, likely discharge home within 24 hours. (2) Headache Qualifiers: Headache type: unspecified Headache chronicity pattern: acute headache Intractability: intractable Qualified Code(s): R51 - Headache Is this a current diagnosis for this admission?: Yes Plan: Headache likely secondary to dehydration, or possibly a side effect of the new chemotherapy medication. + Photophobia. Denies vision changes. IV Dilaudid as needed. 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 Additionally, a large mass was found on her right kidney. Currently undergoing chemotherapy every , patient received a second treatment of new chemotherapy drug yesterday. Followed by Dr. Murphy. - Time Time Spent: 30 to 50 Minutes Medications reviewed and adjusted accordingly: Yes Anticipated discharge: Home - Inpatient Certification Based on my medical assessment, after consideration of the patient's comorbidities, presenting symptoms, or acuity I expect that the services needed warrant INPATIENT care.: Yes I certify that my determination is in accordance with my understanding of Medicare's requirements for reasonable and necessary INPATIENT services [42 CFR 412.3e].: Yes Medical Necessity: Need For IV Fluids - Plan Summary Plan Summary: Treat intractable pain. IV fluids for dehydration. Discharge home.
[2018-04-13] MEDS ORDERED: ONDANSETRON 4 MG TAB.RAPDIS SL PRN (16:50)
[2018-04-13] MEDS: GABAPENTIN 300 MG CAPSULE PO SCH (22:08)
[2018-04-14] MEDS: GABAPENTIN 300 MG CAPSULE PO SCH (06:27)
[2018-04-14] MEDS ORDERED: ALTEPLASE INJ 2 MG VIAL (CATH CLEARANCE) IV PRN (08:47)
[2018-04-14 09:28] LABS: HEMATOCRIT 38.7 % (36.0-47.0); HEMOGLOBIN 13.1 g/dL (12.0-15.5); MEAN CORPUSCULAR HEMOGLOBIN 31.5 pg (27.0-33.4); MEAN CORPUSCULAR HGB CONC 33.9 g/dL (32.0-36.0); MEAN CORPUSCULAR VOLUME 93 fl (80-97); PLATELET COUNT 183 10^3/uL (150-450); RED BLOOD COUNT 4.17 10^6/uL (3.72-5.28); RED CELL DISTRIBUTION WIDTH 13.5 % (11.5-14.0); WHITE BLOOD COUNT 4.6 10^3/uL (4.0-10.5)
[2018-04-14] MEDS ORDERED: ENOXAPARIN SODIUM INJ 30 MG/0.3 ML DISP.SYRIN SUBCUT SCH (10:00)
--- NOTE | 2018-04-14 10:07 | PDOC CONSULTATION ---
Consultation Consult Date: 04/14/18 Attending physician:: CHLOÉ ALATORRE Consult reason:: N/V intractable, MARTINEZ, dehydration, stage IV sarcoma on clinical trial History of Present Illness Admission Date/PCP: 04/13/18 12:37 JOSE EDUARDO MARTINEZ MD Patient complains of: N/V, dehydration History of Present Illness: CAMILA DAWN is a 33 year old female w/ known hx of stage IV leiomyosarcoma, she has been on clinical trial, received clinical trial drug on , had severe N/V and severe migraine, called me monday am, was not keeping anything down, had her to ED for admit for hydration and antiemetics IV, she received doses in ED along w/ haldol which did improve her MARTINEZ, received aggressive hydration x 24 hours and feels much better today. Past Medical History Cardiac Medical History: Denies: Coronary Artery Disease, Myocardial Infarction, Hypertension Pulmonary Medical History: Denies: Asthma, Bronchitis, Chronic Obstructive Pulmonary Disease (COPD), Pneumonia Neurological Medical History: Denies: Seizures Malignancy Medical History: Reports: Other - Sarcoma soft tissue: Present in lungs, liver, bone, right kidney, pancreas Musculoskeltal Medical History: Denies: Arthritis Hematology: Denies: Anemia Past Surgical History Past Surgical History: Reports: Cholecystectomy, Tubal Ligation, Other - RIGHT NEPHRECTOMY Social History Smoking Status: Unknown if Ever Smoked Number of Years Smokin Frequency of Alcohol Use: None Hx Recreational Drug Use: No Drugs: None Hx Prescription Drug Abuse: No - Advance Directive Resuscitation Status: Full Code Family History Family History: Reviewed & Not Pertinent Parental Family History Reviewed: Yes Children Family History Reviewed: Yes Sibling(s) Family History Reviewed.: Yes Medication/Allergy Home Medications: Alprazolam [Xanax 0.25 mg Tablet] 0.25 mg PO DAILYP PRN 04/13/18 Gabapentin [Neurontin 300 mg Capsule] 300 mg PO Q8 04/13/18 Ondansetron [Ondansetron Odt] 8 mg SL Q8HP PRN 04/13/18 Oxycodone HCl [Oxycodone HCl 10 MG Tablet] 10 mg PO Q4HP PRN 04/13/18 Oxycodone HCl [Oxycontin] 60 mg PO Q12 04/13/18 Prochlorperazine Maleate [Compazine 5 mg Tablet] 5 mg PO Q8HP PRN 04/13/18 Ranitidine HCl [Zantac 150 mg Tablet] 150 mg PO BID 04/13/18 Allergies/Adverse Reactions: ibuprofen [From Advil] Allergy (Severe, Verified 10/16/15 10:27) RASH tramadol [Tramadol] Adverse Reaction (Severe, Verified 10/16/15 10:27) dizzy Review of Systems Constitutional: ABSENT: chills, fever(s), headache(s), weight gain, weight loss Eyes: ABSENT: visual disturbances Ears: ABSENT: hearing changes Cardiovascular: ABSENT: chest pain, dyspnea on exertion, edema, orthropnea, palpitations Respiratory: ABSENT: cough, hemoptysis Gastrointestinal: ABSENT: abdominal pain, constipation, diarrhea, hematemesis, hematochezia, nausea, vomiting Genitourinary: ABSENT: dysuria, hematuria Musculoskeletal: ABSENT: joint swelling Integumentary: ABSENT: rash, wounds Neurological: ABSENT: abnormal gait, abnormal speech, confusion, dizziness, focal weakness, syncope Psychiatric: ABSENT: anxiety, depression, homidical ideation, suicidal ideation Endocrine: ABSENT: cold intolerance, heat intolerance, polydipsia, polyuria Hematologic/Lymphatic: ABSENT: easy bleeding, easy bruising Physical Exam Vital Signs: Temp Pulse Resp BP Pulse Ox 97.7 F 54 L 18 119/74 98 04/14/18 07:24 04/14/18 07:24 04/14/18 07:24 04/14/18 07:24 04/14/18 07:24 Intake & Output 04/13/18 04/14/18 04/15/18 06:59 06:59 06:59 Weight 58.5 kg General appearance: PRESENT: no acute distress, well-developed, well-nourished Head exam: PRESENT: atraumatic, normocephalic Eye exam: PRESENT: conjunctiva pink, EOMI, PERRLA. ABSENT: scleral icterus Ear exam: PRESENT: normal external ear exam Mouth exam: PRESENT: moist, tongue midline Neck exam: ABSENT: carotid bruit, JVD, lymphadenopathy, thyromegaly Respiratory exam: PRESENT: clear to auscultation emilia. ABSENT: rales, rhonchi, wheezes Cardiovascular exam: PRESENT: RRR. ABSENT: diastolic murmur, rubs, systolic murmur Pulses: PRESENT: normal dorsalis pedis pul Vascular exam: PRESENT: normal capillary refill GI/Abdominal exam: PRESENT: normal bowel sounds, soft. ABSENT: distended, guarding, mass, organolmegaly, rebound, tenderness Rectal exam: PRESENT: deferred Extremities exam: PRESENT: full ROM. ABSENT: calf tenderness, clubbing, pedal edema Neurological exam: PRESENT: alert, awake, oriented to person, oriented to place , oriented to time, oriented to situation, CN II-XII grossly intact. ABSENT: motor sensory deficit Psychiatric exam: PRESENT: appropriate affect, normal mood. ABSENT: homicidal ideation, suicidal ideation Skin exam: PRESENT: dry, intact, warm. 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
[2018-04-14 11:49] LABS: ALANINE AMINOTRANSFERASE 33 U/L (9-52); ALBUMIN 3.8 g/dL (3.5-5.0); ALKALINE PHOSPHATASE 80 U/L (38-126); ANION GAP 13 (5-19); ASPARTATE AMINO TRANSFERASE 22 U/L (14-36); BILIRUBIN,DIRECT 0.3 mg/dL (0.0-0.4); BILIRUBIN,TOTAL 0.5 mg/dL (0.2-1.3); BLOOD UREA NITROGEN 10 mg/dL (7-20); CARBON DIOXIDE 24 mmol/L (22-30); CHLORIDE 108 mmol/L (98-107); GLUCOSE 92 mg/dL (75-110); POTASSIUM 3.8 mmol/L (3.6-5.0); SODIUM 144.8 mmol/L (137-145); TOTAL PROTEIN 6.7 g/dL (6.3-8.2)
[2018-04-14 14:31] VITALS: BP 123/89
--- NOTE | 2018-04-17 13:35 | PDOC DISCHARGE SUMMARY ---
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 Is this a current diagnosis for this admission?: Yes - Additional Information Resuscitation Status: Full Code Discharge Diet: As Tolerated Discharge Activity: Activity As Tolerated Prescriptions: Haloperidol [Haldol 2 Mg Tablet] 2 mg PO Q8HP PRN #32 tablet PRN Reason: Home Medications: Alprazolam [Xanax 0.25 mg Tablet] 0.25 mg PO DAILYP PRN 04/13/18 Gabapentin [Neurontin 300 mg Capsule] 300 mg PO Q8 04/13/18 Ondansetron [Ondansetron Odt] 8 mg SL Q8HP PRN 04/13/18 Oxycodone HCl [Oxycodone HCl 10 MG Tablet] 10 mg PO Q4HP PRN 04/13/18 Oxycodone HCl [Oxycontin] 60 mg PO Q12 04/13/18 Prochlorperazine Maleate [Compazine 5 mg Tablet] 5 mg PO Q8HP PRN 04/13/18 Ranitidine HCl [Zantac 150 mg Tablet] 150 mg PO BID 04/13/18 Haloperidol [Haldol 2 Mg Tablet] 2 mg PO Q8HP PRN #32 tablet 04/14/18 History of Present Illness History of Present Illness: CAMILA DAWN is a 33 year old female who presents to the emergency department with a one-day history of headache, nausea, and vomiting. She states that her symptoms started shortly after receiving chemotherapy. 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 The patient states that her headache is localized behind both of her eyes, the pain is constant and she describes the pain as throbbing. + Photophobia. +Sound sensitivity. She denies any visual changes or neck pain. The patient states her headache severity is 5/ 5. While in the emergency department, the patient was given zofran and haldol as well as a 1L IVF bolus. Following these therapies, she states the severity of her headache is a 3/5. Her initial VS were relatively normal BP 123/89 HR 77 T 98.5 RR 19 SPO2 100% on room air. Her lab work was unremarkable, with the exception of her HYPERnatremia (Na 145). Upon assessment, the patient was resting in bed on room air. She is drowsy but arousable and answers all questions appropriately. She speask in a soft tone and requests the lights to remain off. The patient states she is still experiencing a headache, but her symptoms have mildly resolved. She denies feeling nauseated, she is not actively vomiting, denies dysuria or diarrhea. The plan is to admit the patient to the hospitalist service for dehydration and intractable pain. 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 She is followed by Dr. Murphy, who was consulted for this admission. Her lab work upon admission was relatively unremarkable, with the exception of hypernatremia (Na 148). The patient was treated in the emergency department with 1L IVF bolus, IV Haldol and IV Zofran. The patient was admitted to the medical floor on continuous maintenance IVF with as needed Zofran and IV Dilaudid. Within 24 hours, the patient's hypernatremia had resolved. She states that the Haldol greatly improved her headache symptoms. After consulting with Dr. Murphy, the decision was made to send the patient home with a one-week supply of Haldol, she already has narcotic pain medications and antiemetics in her possession at home. Ultimately , the patient was discharged home with a new prescription for p.o. Haldol and a follow-up appointment with Dr. Walker. Physical Exam Vital Signs: Temp Pulse Resp BP Pulse Ox 97.8 F 54 L 16 123/89 H 98 04/14/18 14:29 04/14/18 14:29 04/14/18 14:29 04/14/18 14:29 04/14/18 14:29 Results Laboratory Results: 04/14/18 09:05 04/14/18 11:10 Status: Imported from PACS Qualifiers - * PATIENT BEING DISCHARGED WITH ANY OF THE FOLLOWING DIAGNOSIS: No Plan Discharge Plan: Discharge home with prescription for Haldol Time Spent: Less than 30 Minutes
== END 2018-04-14 14:42 | disposition home or self-care (01) | DRG 641 ==
LOC: ER 08:53 → EH 12:37 → UNDOADMIN 12:37 → 2N 13:03 → EH 14:40 → 2N 14:40
PROVIDERS: ADMIT Emergency Medicine; ATTEND Emergency Medicine
DX: E86.0 Dehydration (principal); C49.9 Malignant neoplasm of connective and soft tissue, unspecified; C78.00 Secondary malignant neoplasm of unspecified lung; C78.7 Secondary malignant neoplasm of liver and intrahepatic bile duct; C78.89 Secondary malignant neoplasm of other digestive organs; C79.51 Secondary malignant neoplasm of bone; C79.01 Secondary malignant neoplasm of right kidney and renal pelvis; E87.0 Hyperosmolality and hypernatremia; T88.7XXA Unspecified adverse effect of drug or medicament, initial encounter; T45.1X5A Adverse effect of antineoplastic and immunosuppressive drugs, initial encounter; G89.3 Neoplasm related pain (acute) (chronic); Z90.5 Acquired absence of kidney; Z90.49 Acquired absence of other specified parts of digestive tract; Z98.51 Tubal ligation status; Z82.49 Family history of ischemic heart disease and other diseases of the circulatory system; Z79.899 Other long term (current) drug therapy
CPT/HCPCS: 36415; 80053; 83690; 85025; 85027; 96361; 96374; 96375; 99285; J1170; J1630; J1642; J2405; J7030

== ENCOUNTER → 2018-05-28 | Outpatient (CLI) | payer MEDICARE, MEDICAID ==
--- NOTE | 2018-05-28 14:37 | RADIOLOGY REPORT (SQ) ---
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 Images reviewed with lung, soft tissue and bone windows. Reconstructed coronal a nd sagittal MPR images reviewed. All images stored on PACS. CT scan of the abdomen and pelvis performed with intravenous and with oral contrastusing helical scan fer technique with dynamic intravenous contrast injection. Images reviewed with lung, soft tissue a nd bone windows. Reconstructed coronal and sagittal MPR images reviewed. Delayed images for evaluat ion of the urinary system also acquired and evaluated. All images stored on PACS. All CT scanners at this facility use dose modulation, iterative reconstruction, and/or weight based d osing when appropriate to reduce radiation dose to as low as reasonably achievable (ALARA). [facility]: Dose Right [facility]: CareDose [facility]: Dose Right [facility]: Teradose 4D [facility]: [employer] RADIATION DOSE: CT Rad equipment meets quality standard of care and radiation dose reduction techniq ues were employed. CTDIvol: 4.4 - 4.6 mGy. DLP: 639 mGy-cm. . LIMITATIONS: None. FINDINGS: CHEST: LUNGS AND PLEURA: A 10 mm nodule is now present in the right upper lobe on image 46 (was 5 mm diamete r on 03/19/2018). A ill-defined nodule in the left lower lobe superior segment image 65 is 1 x 0.7 cm today (was 0.8 x 0.6 cm on 03/19/2018). No new nodules. Other ill-defined nodules less than 1 cm in size scattered throughout the periphery of both lungs are stable compared to 03/19/2018 and 02/11/2018. No pleural effusion. No pneumothorax. HILAR AND MEDIASTINAL STRUCTURES: No identified masses or abnormal nodes. HEART AND VASCULAR STRUCTURES: No aneurysm or dissection. No central pulmonary emboli. No pericardi al effusion. HARDWARE: Right-sided permanent central line tip superior vena cava. THYROID AND OTHER SOFT TISSUES: No masses. No adenopathy. BONES: No significant finding. OTHER: No other significant finding. ABDOMEN AND PELVIS: LIVER: The right lobe liver subdiaphragmatic lesion is difficult to visualize. There are adjacent Fi ducials. The 2nd right lobe liver lesion is marked with fiducials, and is near water density measuri ng about 2 cm in greatest diameter (was about 1.5 cm in diameter on 03/19/2018). SPLEEN: Normal size. No focal lesions. PANCREAS: There is now a low-density nodule in the midline mid body of the pancreas, 1.7 x 1.6 cm in size on axial image 17. GALLBLADDER: Surgically absent ADRENAL GLANDS: No significant masses or asymmetry. RIGHT KIDNEY AND URETER: Surgically absent LEFT KIDNEY AND URETER: No solid masses. No significant calcification. No hydronephrosis or hydrouret er. AORTA AND VESSELS: No aneurysm. No dissection. Renal arteries, SMA, celiac without stenosis. RETROPERITONEUM: No retroperitoneal adenopathy, hemorrhage or masses. BOWEL AND PERITONEAL CAVITY: Patient drank oral contrast. No CT evidence of bowel obstruction or alcira e intraperitoneal air or fluid. APPENDIX: Not definitely identified. No right lower quadrant inflammatory change. ABDOMINAL WALL: No masses. No hernias. PELVIS: No mass or free fluid. Normal bladder. Normal size female pelvic organs BONES: Lytic lesion in the left acetabular roof is unchanged from previous exams. OTHER: No other significant finding. IMPRESSION: Increase in size of right upper lobe nodule and superior segment left lower lobe nodule New nodule in the midline pancreatic body Subdiaphragmatic right lobe liver lesion is difficult to visualize by non contrasted CT. The 2nd rig ht lobe liver lesion marked with fiducials is larger than on previous exams. Stable lytic lesion left acetabular roof. TECHNICAL DOCUMENTATION: JOB ID: [id number] Quality ID # [id number]: Final reports with documentation of one or more dose reduction techniques (e.g., Au tomated exposure control, adjustment of the mA and/or kV according to patient size, use of iterative reconstruction technique) 2010 [employer]- All Rights Reserved Reading location - IP/workstation name: [email or web address]
== END ==
LOC: RAD 10:49
PROVIDERS: ATTEND Internal Medicine Hematology & Oncology
DX: C48.0 Malignant neoplasm of retroperitoneum (principal)
CPT/HCPCS: 71260; 74177

== ENCOUNTER → 2018-07-09 | Outpatient (CLI) | payer MEDICARE, MEDICAID ==
--- NOTE | 2018-07-09 13:24 | RADIOLOGY REPORT (SQ) ---
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 RADIONUCLIDE AND DOSE: 26.0 mCi technetium 99m labeled red blood cells The route of agent administration: Intravenous TECHNIQUE: Following administration of the radionuclide, gated images of the heart are obtained in t hree projections. Left ventricular functional analysis performed. LIMITATIONS: None. FINDINGS: LEFT VENTRICULAR FUNCTION: EJECTION FRACTION: 76%. END-DIASTOLIC VOLUME: 57 mL. END-SYSTOLIC VOLUME: 20 mL. WALL MOTION: No focal wall motion abnormalities. OTHER: No other significant finding. IMPRESSION: NORMAL CARDIAC MUGA STUDY. TECHNICAL DOCUMENTATION: JOB ID: [id number] [employer]- All Rights Reserved Reading location - IP/workstation name: [email or web address]
== END ==
LOC: RAD 10:37
PROVIDERS: ATTEND Internal Medicine
DX: C48.0 Malignant neoplasm of retroperitoneum (principal); Z08 Encounter for follow-up examination after completed treatment for malignant neoplasm
CPT/HCPCS: 78472; A9560; Q9969

== ENCOUNTER → 2018-08-03 | Outpatient (CLI) | payer MEDICARE, MEDICAID ==
--- NOTE | 2018-08-03 14:57 | RADIOLOGY REPORT (SQ) ---
EXAM DESCRIPTION: HIP LEFT AP/LATERAL COMPLETED DATE/TIME: 08/03/2018 2:34 pm REASON FOR STUDY: PAIN IN LEFT HIP M79.605 PAIN IN LEFT LEG C79.51 SECONDARY MALIGNANT NEOPLASM OF BONE M25.552 PAIN IN LEFT HIP COMPARISON: CT abdomen pelvis 05/28/2018 NUMBER OF VIEWS: Two views. TECHNIQUE: AP pelvis and additional frog-leg view of the left hip. LIMITATIONS: None. FINDINGS: MINERALIZATION: Normal. LEFT HIP: No fracture dislocation. There is a lytic lesion in the left ilium just above the acetabul um. This appears relatively stable compared to the CT. RIGHT HIP: No fracture or dislocation. No worrisome bone lesions. PUBIS AND ISCHIUM: No fracture. PELVIS: No fracture. SACRUM: No fracture or dislocation. No worrisome bone lesions. LOWER LUMBAR SPINE: No fracture or dislocation. No worrisome bone lesions. No significant disc disea se. SOFT TISSUES: No findings. OTHER: No other significant finding. IMPRESSION: The lytic lesion above the left acetabulum appears relatively stable. TECHNICAL DOCUMENTATION: JOB ID: [id number]- All Rights Reserved Reading location - IP/workstation name: [email or web address]
--- NOTE | 2018-08-03 15:00 | RADIOLOGY REPORT (SQ) ---
EXAM DESCRIPTION: FEMUR LEFT COMPLETED DATE/TIME: 08/03/2018 2:34 pm REASON FOR STUDY: PAIN IN LEFT LEG M79.605 PAIN IN LEFT LEG C79.51 SECONDARY MALIGNANT NEOPLASM OF BONE M25.552 PAIN IN LEFT HIP COMPARISON: None. NUMBER OF VIEWS: Two views. TECHNIQUE: Two radiographic images acquired of the left femur to include hip and knee in at least on e projection. LIMITATIONS: None. FINDINGS: MINERALIZATION: Normal. BONES: No fracture. Lytic lesions just above the left acetabulum. SOFT TISSUES: No obvious swelling or foreign body. OTHER: No other significant finding. IMPRESSION: No acute abnormality. Lytic lesion above the left acetabulum. TECHNICAL DOCUMENTATION: JOB ID: [id number] [employer]- All Rights Reserved Reading location - IP/workstation name: [email or web address]
== END ==
LOC: RAD 14:03
PROVIDERS: ATTEND Internal Medicine
DX: M79.605 Pain in left leg (principal); M25.552 Pain in left hip; M79.651 Pain in right thigh; C79.51 Secondary malignant neoplasm of bone

== ENCOUNTER → 2018-08-26 | Outpatient (CLI) | payer MEDICARE, MEDICAID ==
--- NOTE | 2018-08-27 10:37 | RADIOLOGY REPORT (SQ) ---
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 TECHNIQUE: Blood glucose level was verified. Above dose of FDG was injected intravenously. 2-D seg mented attenuation correction images were obtained from the base of the skull to the midthighs. Nonc ontrast CT images were obtained for attenuation correction and fusion with emission images. CT image s were performed without oral or intravenous contrast and are not sensitive for parenchymal lesions. A series of overlapping emission PET images were obtained. Images reviewed and manipulated at [facility] work station by the radiologist. Images stored on PACS. LIMITATIONS: None. FINDINGS: HEAD AND NECK: No areas of abnormal metabolic activity in the soft tissues of the head and neck. CHEST: New hypermetabolic right upper lobe nodule 1.7 cm with SUV 5.7 to 7.0. Several smaller pulmon shara nodules are stable to slightly increased in size but not significantly hypermetabolic. ABDOMEN AND PELVIS: New hypermetabolic 1.5 cm lesion liver segment 6. Previously described other harriett er lesions are stable. Radiotherapy treatment markers posterior right lobe. PROXIMAL LOWER EXTREMITIES: No areas of abnormal metabolic activity in the soft tissues of the lower extremities. BONES: New hypermetabolic left anterior 2nd rib 3.7 [address] FINDINGS: Right central line tip in the SVC. Prior right nephrectomy. OTHER: No other significant findings. IMPRESSION: New hypermetabolic right upper lobe nodule. New hypermetabolic liver lesion. New hyper metabolic left anterior 2nd rib. TECHNICAL DOCUMENTATION: JOB ID: [id number] [employer]- All Rights Reserved Reading location - IP/workstation name: [email or web address]
== END ==
LOC: RAD 17:47
PROVIDERS: ATTEND Internal Medicine
DX: C48.0 Malignant neoplasm of retroperitoneum (principal)
CPT/HCPCS: 78815; A9552

== ENCOUNTER → 2018-12-25 | Outpatient (CLI) | payer MEDICARE, MEDICAID ==
--- NOTE | 2019-01-07 13:06 | RADIOLOGY REPORT (SQ) ---
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 TECHNIQUE: Blood glucose level was verified. Above dose of FDG was injected intravenously. 2-D seg mented attenuation correction images were obtained from the base of the skull to the midthighs. Nonc ontrast CT images were obtained for attenuation correction and fusion with emission images. CT image s were performed without oral or intravenous contrast and are not sensitive for parenchymal lesions. A series of overlapping emission PET images were obtained. Images reviewed and manipulated at [facility] work station by the radiologist. Images stored on PACS. LIMITATIONS: None. FINDINGS: HEAD AND NECK: No areas of abnormal metabolic activity in the soft tissues of the head and neck. CHEST: Overall increase in size and number of metabolically active lung lesions compared to 08/26/2018 . Index lesion is in the anterior right upper lobe, 3.5 x 3 cm in size on axial image 73 with SUV 17 .4 (was 1.7 x 1.3 cm with SUV of 7 on 08/26/2018). Stable increased metabolic activity anterior left 2nd rib with SUV of 3.2. New left lateral 6th rib lesion with SUV of 5.4. ABDOMEN AND PELVIS: Posterior right lobe liver segment 6 lesion with adjacent radiotherapy treatment markers now measures 3.6 x 2.4 cm in size on axial image 117 with SUV 4.1 (was 1.5 x 1.5 cm in size o n 08/26/2018) There is a new 3 x 2.4 cm mass on axial image 118 with SUV of 7.2 along the greater curvature of stom ach/lesser sac/ventral pancreas region. This is new compared to prior PET-CT 08/26/2018. Subcentimeter focus of increased metabolic activity along the right iliacus muscle with SUV of 5. Th is is new compared to prior studies. In the leftward uterine body, a 2 cm fibroid is present with SUV of 3.5. This is new compared to brittany or PET-CT. PROXIMAL LOWER EXTREMITIES: No areas of abnormal metabolic activity in the soft tissues of the lower extremities. BONES: New left 6th rib activity, SUV 5.4. New subcentimeter focus left innominate bone at the SI ray int with SUV of 3.6. ADDITIONAL CT FINDINGS: Post right nephrectomy. Right central line tip superior vena cava OTHER: Liver background activity 2.0 SUV. Blood pool background activity 1.3 SUV IMPRESSION: Progression of sarcoma, with increasing size and number of lung, liver, soft tissue, and bone lesions compared to prior PET-CT 08/26/2018 TECHNICAL DOCUMENTATION: JOB ID: [id number] [employer]- All Rights Reserved Reading location - IP/workstation name: [email or web address]
== END ==
LOC: RAD 17:51
PROVIDERS: ATTEND Physician Assistant Medical
DX: C48.0 Malignant neoplasm of retroperitoneum (principal)
CPT/HCPCS: 78815; A9552

== ENCOUNTER → 2018-12-26 | Outpatient (CLI) | payer MEDICARE, MEDICAID ==
--- NOTE | 2018-12-26 16:45 | RADIOLOGY REPORT (SQ) ---
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 Images stored on PACS. CONTRAST TYPE AND DOSE: 4 mL Dotarem. RENAL FUNCTION: None required. The patient is less than 50 years old. LIMITATIONS: Motion artifact on the post contrasted images FINDINGS: ANATOMY: No anomalies. Normal vascular flow voids. Pituitary fossa normal. CSF SPACES: Normal in size and contour. No hemorrhage. CEREBRUM: Sulci and gyri normal in size and contour. Normal white matter signal on FLAIR imaging. No evidence of hemorrhage, mass, or extraaxial fluid collection. No abnormal enhancement post contrast. POSTERIOR FOSSA: No signal alteration. No hemorrhage. No edema, masses, or mass effect. Internal perry tory canals, cerebellopontine angles, mastoids normal. No enhancing lesions. No abnormal enhancement post contrast. DIFFUSION IMAGING: Negative for acute or subacute infarction. ORBITS: No masses. Globes normal. PARANASAL SINUSES: No fluid levels. Mucosa normal. OTHER: No other significant finding. IMPRESSION: NORMAL MRI OF THE BRAIN WITHOUT AND WITH INTRAVENOUS GADOLINIUM CONTRAST. EVIDENCE OF ACUTE STROKE: NO. TECHNICAL DOCUMENTATION: JOB ID: [id number] [employer]- All Rights Reserved Reading location - IP/workstation name: [email or web address]
== END ==
LOC: RAD 15:23
PROVIDERS: ATTEND Internal Medicine
DX: C48.0 Malignant neoplasm of retroperitoneum (principal)
CPT/HCPCS: 82565; 70553; A9576

== ENCOUNTER → 2019-03-19 | Outpatient (CLI) | payer MEDICARE, MEDICAID ==
--- NOTE | 2019-03-19 15:47 | RADIOLOGY REPORT (SQ) ---
EXAM DESCRIPTION: CT CHEST WITH COMPLETED DATE/TIME: 03/19/2019 3:24 pm REASON FOR STUDY: MALIGNANT NEOPLASM OF RETROPERITONEUM (C48.0) C48.0 MALIGNANT NEOPLASM OF RETROPE RITONEUM COMPARISON: 05/28/2018 TECHNIQUE: CT scan of the chest performed using helical scanning technique with dynamic intravenous contrast injection. Images reviewed with lung, soft tissue and bone windows. Reconstructed coronal and sagittal MPR and MIP images reviewed. All images stored on PACS. All CT scanners at this facility use dose modulation, iterative reconstruction, and/or weight based d osing when appropriate to reduce radiation dose to as low as reasonably achievable (ALARA). [facility]: Dose Right [facility]: CareDose [facility]: Dose Right [facility]: Teradose 4D [facility]: [employer] CONTRAST TYPE AND DOSE: contrast/concentration: Isovue 300.00 mg/ml; Total Contrast Delivered: 48.0 ml; Total Saline Delivered: 55.0 ml RENAL FUNCTION: Creatinine 0.8 RADIATION DOSE: CT Rad equipment meets quality standard of care and radiation dose reduction techniq ues were employed. CTDIvol: 3.1 mGy. DLP: 105 mGy-cm. . LIMITATIONS: None. FINDINGS: LUNGS AND PLEURA: Multiple pulmonary masses including an 8 cm mass in the upper medial asp ect of the chest on the right. This is contiguous with the mediastinum and right hilum. Marked incr ease in disease in the chest. HILAR AND MEDIASTINAL STRUCTURES: The large mass described above is contiguous with the mediastinum a nd the right hilum and no cleavage plane is seen. HEART AND VASCULAR STRUCTURES: There is a 37 x 22 mm mass in the right atrium. HARDWARE: Injection port on the right. UPPER ABDOMEN: Increased metastatic disease in the liver. THYROID AND OTHER SOFT TISSUES: No masses. No adenopathy. BONES: There is some ill-defined sclerosis in the T6 vertebral body. OTHER: No other significant finding. IMPRESSION: Marked increase in disease in the chest. There is a mass in the right atrium. Increase metastatic disease in the liver. Cannot exclude with metastatic lesion in the T6 vertebral body. TECHNICAL DOCUMENTATION: JOB ID: [id number] Quality ID # [id number]: Final reports with documentation of one or more dose reduction techniques (e.g., Au tomated exposure control, adjustment of the mA and/or kV according to patient size, use of iterative reconstruction technique) 2010 [employer]- All Rights Reserved Reading location - IP/workstation name: [email or web address]
== END ==
LOC: RAD 14:39
PROVIDERS: ATTEND Physician Assistant Medical
DX: C48.0 Malignant neoplasm of retroperitoneum (principal); C78.7 Secondary malignant neoplasm of liver and intrahepatic bile duct
CPT/HCPCS: 71260; 82565

== ENCOUNTER 2019-03-27 07:04 | Inpatient (IN) | payer MEDICARE, MEDICAID ==
[2019-03-27] MEDS ORDERED: NORMAL SALINE 1000 ML 1,000 ML IV ONE (07:23)
[2019-03-27] MEDS ORDERED: PROMETHAZINE HCL INJ 25 MG/1 ML VIAL IV ONE (07:30)
[2019-03-27] MEDS ORDERED: DIAZEPAM INJ 10 MG/2 ML DISP.SYRIN IV ONE (07:30)
[2019-03-27 07:44] LABS: ABSOLUTE LYMPHOCYTES (AUTO) 0.8 10^3/uL (0.5-4.7); ABSOLUTE MONOCYTES (AUTO) 0.8 10^3/uL (0.1-1.4); ABSOLUTE NEUT (AUTO) 8.2 10^3/uL (1.7-8.2); BASOPHILS % (AUTO) 0.3 % (0-2); EOSINOPHILS % (AUTO) 0.1 % (0-6); HEMATOCRIT 35.7 % (36.0-47.0); HEMOGLOBIN 11.6 g/dL (12.0-15.5); LYMPHOCYTES % (AUTO) 8.4 % (13-45); MEAN CORPUSCULAR HEMOGLOBIN 27.7 pg (27.0-33.4); MEAN CORPUSCULAR HGB CONC 32.7 g/dL (32.0-36.0); MEAN CORPUSCULAR VOLUME 85 fl (80-97); MONOCYTES % (AUTO) 8.1 % (3-13); PLATELET COUNT 182 10^3/uL (150-450); RED CELL DISTRIBUTION WIDTH 14.3 % (11.5-14.0); SEGMENTED NEUTROPHILS % (AUTO) 83.1 % (42-78); TOTAL CELLS COUNTED % (AUTO) 100 %; WHITE BLOOD COUNT 9.9 10^3/uL (4.0-10.5)
--- NOTE | 2019-03-27 08:07 | ER Document Report ---
ED General - General Chief Complaint: Nausea/Vomiting/Diarrhea Stated Complaint: NAUSEA,VOMITING Time Seen by Provider: 03/27/19 07:23 Primary Care Provider: JASWINDER NUNEZ PA-C [Primary Care Provider] - Follow up as needed TRAVEL OUTSIDE OF THE [place] IN LAST 30 DAYS: No - HPI Notes: Patient is a 34-year-old female that presents to the emergency department for chief complaint of nausea vomiting and lockjaw. Patient reports nausea and vomiting that began yesterday. She states she had 2 episodes of fecal incontinence. Patient denies any other diarrhea and states she believes she actually might be constipated from her chronic pain medication. Patient does have Zofran at home which she has taken with minimal relief of her nausea. She did receive Zofran by EMS prior to arrival and states it has helped but she still feels nauseated. She reports diffuse abdominal pain that began when she started vomiting yesterday. The pain is crampy and intermittent and worse on the left side. She denies aggravating or relieving factors to her pain. She denies associated fevers or chills. She denies any change in her urine or dysuria. Patient states that after vomiting all night she began to have lockjaw this morning. She has had locked up previously but states it is never been this bad. 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 REVIEW OF SYSTEMS: CONSTITUTIONAL : No fever No chills No diaphoresis No recent illness EENT: lock jaw No vision changes No congestion No sore throat CARDIOVASCULAR: No chest pain No palpitations RESPIRATORY: No shortness of breath No cough No difficulty breathing GASTROINTESTINAL: abdominal pain nausea vomiting diarrhea Constipation GENITOURINARY: No dysuria No hematuria No difficulty urinating MUSCULOSKELETAL: No back pain No leg pain No arm pain SKIN: No rashes No lesions LYMPHATIC: No swollen, enlarged glands. NEUROLOGICAL: No lightheadedness No headache No weakness No paresthesias PSYCHIATRIC: No anxiety No depression PHYSICAL EXAMINATION: Vital signs reviewed, nursing noted reviewed. GENERAL: Well-appearing, thin and frail and in no acute distress. HEAD: Atraumatic, normocephalic. EYES: Eyes appear normal, extraocular movements intact, sclera anicteric, conjunctiva are normal. ENT: Bilateral TMJ tenderness with jaw stuck in the open position. No jaw dislocation or deformity, nares patent, oropharynx clear without exudates. Moist mucous membranes. NECK: Normal range of motion, supple without lymphadenopathy LUNGS: Nontender palpable MediPort in right anterior chest, breath sounds clear to auscultation bilaterally and equal. No wheezes rales or rhonchi. HEART: Regular rate and rhythm without murmurs ABDOMEN: Soft, mild diffuse tenderness worse in the left lower quadrant, normoactive bowel sounds. No rebound, guarding, or rigidity. No masses appreciated. EXTREMITIES: Nontender, good range of motion, no pitting or edema. NEUROLOGICAL: No focal neurological deficits. A&O x4, moves all extremities spontaneously Motor and sensory grossly intact on exam. PSYCH: Normal mood, normal affect. SKIN: Warm, Dry, normal turgor, no rashes or lesions noted on exposed skin - Related Data Allergies/Adverse Reactions: ibuprofen [From Advil] Allergy (Severe, Verified 10/16/15 10:27) RASH tramadol [Tramadol] Adverse Reaction (Severe, Verified 10/16/15 10:27) dizzy Past Medical History - Social History Smoking Status: Unknown if Ever Smoked Family History: Reviewed & Not Pertinent Patient has suicidal ideation: No Patient has homicidal ideation: No - Past Medical History Cardiac Medical History: Denies: Hx Coronary Artery Disease, Hx Heart Attack, Hx Hypertension Pulmonary Medical History: Denies: Hx Asthma, Hx Bronchitis, Hx COPD, Hx Pneumonia Neurological Medical History: Denies: Hx Cerebrovascular Accident, Hx Seizures Renal/ Medical History: Denies: Hx Peritoneal Dialysis Musculoskeletal Medical History: Denies Hx Arthritis Past Surgical History: Reports: Hx Cholecystectomy, Hx Kidney (Renal Surgery) - Right kidney removed, Hx Tubal Ligation, Other - RIGHT NEPHRECTOMY - Immunizations Immunizations up to date: Yes Hx Diphtheria, Pertussis, Tetanus Vaccination: Yes Physical Exam - Vital signs Vitals: Temp Pulse Resp BP 97.6 F 86 19 119/83 03/27/19 07:09 03/27/19 07:09 03/27/19 07:09 03/27/19 07:09 Course - Re-evaluation Re-evalutation: 03/27/19 08:06 Vitals reviewed. Nursing notes reviewed. Patient is afebrile and nontoxic in appearance. She is frail in appearance from her cancer treatments. Patient received Zofran by EMS prior to arrival and reports some improvement but still feels very nauseated. She was given Phenergan for further nausea control. Patient was given Valium for her jaw spasm, because of positioning patient was unable to get x-ray of her jaw to confirm dislocation. CT scan was obtained of the facial bones and does show mandibular dislocation. Patient was sedated and jaw was reduced. Her abdominal CT scan shows intussusception with small bowel obstruction. Her care was discussed with Dr. Magallanes who evaluated her at bedside. Because of the poor prognosis of her cancer she is not currently a good surgical candidate. Palliative measures were discussed with the patient. Plan to admit to the hospital for further medical management of her small bowel obstruction. NG tube was placed by myself in the emergency room without complication. Care discussed with Dr. Ambrocio who accepts admission to the hospital. Patient and family in agreement with plan of care. Laboratory 03/27/19 03/27/19 03/27/19 07:30 07:30 07:55 WBC 9.9 RBC 4.20 Hgb 11.6 L Hct 35.7 L MCV 85 MCH 27.7 MCHC 32.7 RDW 14.3 H Plt Count 182 Seg Neutrophils % 83.1 H Lymphocytes % 8.4 L Monocytes % 8.1 Eosinophils % 0.1 Basophils % 0.3 Absolute Neutrophils 8.2 Absolute Lymphocytes 0.8 Absolute Monocytes 0.8 Absolute Eosinophils 0.0 Absolute Basophils 0.0 Sodium Cancelled Potassium Cancelled Chloride Cancelled Carbon Dioxide Cancelled Anion Gap Cancelled BUN Cancelled Creatinine Cancelled Est GFR ( Amer) Cancelled Est GFR (Non-Af Amer) Cancelled Glucose Cancelled Calcium Cancelled Total Bilirubin Cancelled Direct Bilirubin Cancelled Neonat Total Bilirubin Cancelled Neonat Direct Bilirubin Cancelled Neonat Indirect Bili Cancelled AST Cancelled ALT Cancelled Alkaline Phosphatase Cancelled Total Protein Cancelled Albumin Cancelled Lipase Cancelled Urine Color REGINALD Urine Appearance SLIGHTLY-CLOUDY Urine pH 5.0 Ur Specific [place] 1.020 Urine Protein NEGATIVE Urine Glucose (UA) NEGATIVE Urine Ketones 20 H Urine Blood NEGATIVE Urine Nitrite NEGATIVE Urine Bilirubin NEGATIVE Urine Urobilinogen 4.0 H Ur Leukocyte Esterase TRACE H Urine WBC (Auto) 6 Urine RBC (Auto) 0 Squamous Epi Cells Auto <1 Urine Mucus (Auto) RARE Urine Ascorbic Acid NEGATIVE 03/27/19 08:18 WBC RBC Hgb Hct MCV MCH MCHC RDW Plt Count Seg Neutrophils % Lymphocytes % Monocytes % Eosinophils % Basophils % Absolute Neutrophils Absolute Lymphocytes Absolute Monocytes Absolute Eosinophils Absolute Basophils Sodium 137.6 Potassium 3.7 Chloride 98 Carbon Dioxide 30 Anion Gap 10 BUN 13 Creatinine 0.81 Est GFR ( Amer) > 60 Est GFR (Non-Af Amer) > 60 Glucose 98 Calcium 7.9 L Total Bilirubin 1.2 Direct Bilirubin 0.5 H Neonat Total Bilirubin Not Reportable Neonat Direct Bilirubin Not Reportable Neonat Indirect Bili Not Reportable AST 32 ALT 36 Alkaline Phosphatase 533 H Total Protein 5.7 L Albumin 2.6 L Lipase 111.4 Urine Color Urine Appearance Urine pH Ur Specific [place] Urine Protein Urine Glucose (UA) Urine Ketones Urine Blood Urine Nitrite Urine Bilirubin Urine Urobilinogen Ur Leukocyte Esterase Urine WBC (Auto) Urine RBC (Auto) Squamous Epi Cells Auto Urine Mucus (Auto) Urine Ascorbic Acid Facial Bones CT 03/27/19 00:00 IMPRESSION: Bilateral dislocation of the temporomandibular joints with dislocation of the mandibular condyles anterior to the articular eminences. No associated fracture. Abdomen/Pelvis CT 03/27/19 07:31 IMPRESSION: Small bowel intussusception in the pelvis, with resulting small bowel obstruction. 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 - Vital Signs Vital signs: Temp Pulse Resp BP Pulse Ox 97.6 F 86 19 119/83 03/27/19 07:09 03/27/19 07:09 03/27/19 07:09 03/27/19 07:09 - Laboratory Result Diagrams: 03/27/19 07:30 03/27/19 08:18 Laboratory results interpreted by me: 03/27/19 03/27/19 03/27/19 07:30 07:55 08:18 Hgb 11.6 L Hct 35.7 L RDW 14.3 H Seg Neutrophils % 83.1 H Lymphocytes % 8.4 L Calcium 7.9 L Direct Bilirubin 0.5 H Alkaline Phosphatase 533 H Total Protein 5.7 L Albumin 2.6 L Urine Ketones 20 H Urine Urobilinogen 4.0 H Ur Leukocyte Esterase TRACE H Procedures - Conscious Sedation Conscious sedation Time started: 12:30 Consent obtained: Yes Indication: Mandibular dislocation reduction Prior complications: Procedural sedation Pt with a mild systemic disease.: P2. - ASA Classification. Airway Evaluation: Normal anatomy Mallampati Classification: Class 1 Used during procedure: Suction available, IV access obtained, Pulse ox on pt., teletypesetter monitor on pt. Medications administered: Diprivan Reversal agents: None I personally performed/intraservice time: Sedation, Procedure, 30 min or less Complications: No - Joint Reduction/Fracture Care mandible Time completed: 12:30 Consent obtained: Yes Conscious sedation: Yes Pre-procedure NV exam: Yes Post-procedure NV exam: Yes Post-reduction x-ray: Joint reduced Reduction attempts: 1 Complications: No Notes: 03/27/19 12:37 Manual manipulation of mandible performed for dislocation reduction. Inferior and left lateral traction was placed with one attempt and good realignment of the mandible. Patient tolerated procedure well without immediate complication. - Additional Procedures Gastric tube replacement Time performed: 12:35 Additional Procedures: Gastric tube replacement Notes: 03/27/19 12:38 NG tube placed in left nares, one attempt, no immediate complications, secured i n place with tape, procedure tolerated well Critical Care Note - Critical Care Note Total time excluding time spent on procedures (mins): 40 Comments: Critical care time 40 exclusive from separate billable procedures for a patient requiring complex medical decision making, and high potential for clinical deterioration. Time spent obtaining history from patient or surrogate, discussions with consultants, development of treatment plan with patient or surrogate, evaluation of patient's response to treatment, examination of patient, ordering and performing treatments and interventions, ordering and revi ew of laboratory studies, re-evaluation of patient's condition, ordering and review of radiographic studies and review of old charts Discharge - Discharge Clinical Impression: Small bowel obstruction, Intussusception Jaw dislocation Qualifiers: Encounter type: initial encounter Qualified Code(s): S03.00XA - Dislocation of jaw, unspecified side, initial encounter Condition: Stable Disposition: ADMITTED INPATIENT Admitting Provider: Adarsh (Hospitalist) Unit Admitted: Telemetry Referrals: JASWINDER NUNEZ PA-C [Primary Care Provider] - Follow up as needed
[2019-03-27 08:20] LABS: APPEARANCE,URINE SLIGHTLY-CLOUDY; BILIRUBIN,URINE NEGATIVE (NEGATIVE); COLOR,URINE AMBER; GLUCOSE, URINE NEGATIVE (NEGATIVE); KETONES,URINE 20 mg/dL (NEGATIVE); LEUKOCYTE ESTERASE,URINE TRACE (NEGATIVE); NITRITE,URINE NEGATIVE (NEGATIVE); PROTEIN,URINE NEGATIVE (NEGATIVE)
[2019-03-27] MEDS ORDERED: MORPHINE SULFATE 10 MG/ML INJ IV ONE ×2 (08:45→13:53)
[2019-03-27 08:49] LABS: ALANINE AMINOTRANSFERASE 36 U/L (9-52); ALBUMIN 2.6 g/dL (3.5-5.0); ALKALINE PHOSPHATASE 533 U/L (38-126); ANION GAP 10 (5-19); ASPARTATE AMINO TRANSFERASE 32 U/L (14-36); BILIRUBIN,DIRECT 0.5 mg/dL (0.0-0.4); BILIRUBIN,TOTAL 1.2 mg/dL (0.2-1.3); BLOOD UREA NITROGEN 13 mg/dL (7-20); CALCIUM 7.9 mg/dL (8.4-10.2); CARBON DIOXIDE 30 mmol/L (22-30); CHLORIDE 98 mmol/L (98-107); GLUCOSE 98 mg/dL (75-110); LIPASE 111.4 U/L (23-300); POTASSIUM 3.7 mmol/L (3.6-5.0); SODIUM 137.6 mmol/L (137-145); TOTAL PROTEIN 5.7 g/dL (6.3-8.2)
[2019-03-27] MEDS ORDERED: CEFTRIAXONE INJ 1000 MG VIAL IV ONE (09:57)
--- NOTE | 2019-03-27 10:45 | RADIOLOGY REPORT (SQ) ---
EXAM DESCRIPTION: CT ABD/PELVIS WITH IV ONLY COMPLETED DATE/TIME: 03/27/2019 9:25 am REASON FOR STUDY: abdominal pain COMPARISON: CT chest 03/19/2019 PET-CT 12/25/2018, 08/26/2018 CT chest abdomen pelvis 05/28/2018 TECHNIQUE: CT scan of the abdomen and pelvis performed using helical scanning technique with dynamic intravenous contrast injection. No oral contrast. Images reviewed with lung, soft tissue, and bone windows. Reconstructed coronal and sagittal MPR images reviewed. Delayed images for evaluation of the urinary system also acquired. All images stored on PACS. All CT scanners at this facility use dose modulation, iterative reconstruction, and/or weight based d osing when appropriate to reduce radiation dose to as low as reasonably achievable (ALARA). [facility]: Dose Right [facility]: CareDose [facility]: Dose Right [facility]: Teradose 4D [facility]: [employer] CONTRAST TYPE AND DOSE: contrast/concentration: Isovue 350.00 mg/ml; Total Contrast Delivered: 51.0 ml; Total Saline Delivered: 65.0 ml RENAL FUNCTION: Creatinine 0.8 RADIATION DOSE: CT Rad equipment meets quality standard of care and radiation dose reduction techniq ues were employed. CTDIvol: 5.1 - 5.8 mGy. DLP: 597 mGy-cm.. LIMITATIONS: None. FINDINGS: On coronal images 20-27, and axial images 58 through 73, a 10 cm long small bowel intussus ception is present causing proximal small bowel obstruction with fluid-filled proximal small bowel lo ops. There is decompressed distal small bowel in the pelvis and at the level of the ileocecal valve. Mode rate stool in the colon. No free intraperitoneal air. Trace pelvic cul-de-sac fluid. Findings called to Dr. Person in the emergency room, 1025 hours 03/27/2019. LOWER CHEST: There is 8 massive tumor at the right hilum invading into left atrium on axial images 1- 6. Lung bases are free of focal infiltrates. Too numerous to count lung base metastatic nodules. LIVER: Too numerous to count liver metastatic nodules SPLEEN: Normal size. No focal lesions. PANCREAS: No masses. No significant calcifications. No adjacent inflammation or peripancreatic fluid collections. Pancreatic duct not dilated. GALLBLADDER: Surgically absent ADRENAL GLANDS: Difficult to visualize the right adrenal gland, likely surgically absent. Left adren al gland unremarkable RIGHT KIDNEY AND URETER: Right nephrectomy. In the right nephrectomy bed, a 4.2 x 4.4 cm mass is pr esent (was 3.6 x 2.7 cm on PET-CT 12/25/2018). LEFT KIDNEY AND URETER: There is now a 3 cm metastatic lesion in the left upper pole kidney. No sig nificant calcifications. No hydronephrosis or hydroureter. AORTA AND VESSELS: No aneurysm. No dissection. Renal arteries, SMA, celiac without stenosis. RETROPERITONEUM: No retroperitoneal adenopathy, hemorrhage or masses. BOWEL AND PERITONEAL CAVITY: As above APPENDIX: Not identified PELVIS: Distal small bowel loops intussusception in the pelvis. Normal size female pelvic organs. N ew vague 2.5 cm mass posterior uterine body likely a metastatic lesion. Ovaries grossly normal size. No pelvic adenopathy ABDOMINAL WALL: No masses. No hernias. BONES: No significant or acute findings. OTHER: No other significant finding. IMPRESSION: Small bowel intussusception in the pelvis, with resulting small bowel obstruction. 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 COMMENT: Pertinent findings on the imaging study reported as a CRITICAL RESULT to ALDO HECTOR DO at1 0:25 on 03/27/2019. Category of Critical Result: Small bowel obstruction TECHNICAL DOCUMENTATION: JOB ID: [id number] Quality ID # [id number]: Final reports with documentation of one or more dose reduction techniques (e.g., Au tomated exposure control, adjustment of the mA and/or kV according to patient size, use of iterative reconstruction technique) 2010 [employer]- All Rights Reserved Reading location - IP/workstation name: [email or web address]
[2019-03-27] MEDS ORDERED: PHARMACY COMMUNICATION ORDER MC NR (11:00)
--- NOTE | 2019-03-27 11:13 | RADIOLOGY REPORT (SQ) ---
EXAM DESCRIPTION: CT FACIAL AREA WITHOUT COMPLETED DATE/TIME: 03/27/2019 10:57 am REASON FOR STUDY: JAW PAIN COMPARISON: None. TECHNIQUE: Noncontrasted images through the facial bones and orbits windowed for bone and soft tissu e. Additional coronal and sagittal reconstructed images reviewed. All images stored on PACS. All CT scanners at this facility use dose modulation, iterative reconstruction, and/or weight based d osing when appropriate to reduce radiation dose to as low as reasonably achievable (ALARA). [facility]: Dose Right [facility]: CareDose [facility]: Dose Right [facility]: Teradose 4D [facility]: [employer] RADIATION DOSE: CT Rad equipment meets quality standard of care and radiation dose reduction techniq ues were employed. CTDIvol: 30.4 mGy. DLP: 579 mGy-cm. mGy. LIMITATIONS: None. FINDINGS: MANDIBLE: There is there is bilateral dislocation of the temporomandibular joints with di slocation of the mandibular condyles anterior to the articular eminences. No associated fracture. FACIAL BONES: No fracture or bone lesion. ORBITS: Intact. No fracture. Symmetric intact globes and retroorbital soft tissues. PARANASAL SINUSES: Clear. No significant mucosal thickening, mass or fluid. No nasal polyps. Maxill shara sinus outlets are patent. SOFT TISSUES: No mass or edema. INFERIOR BRAIN: Limited view. No acute findings. OTHER: No other significant finding. IMPRESSION: Bilateral dislocation of the temporomandibular joints with dislocation of the mandibular condyles anterior to the articular eminences. No associated fracture. TECHNICAL DOCUMENTATION: JOB ID: [id number] Quality ID # [id number]: Final reports with documentation of one or more dose reduction techniques (e.g., Au tomated exposure control, adjustment of the mA and/or kV according to patient size, use of iterative reconstruction technique) 2010 [employer] ([employer] All Rights Reserved Reading location - IP/workstation name: [email or web address]
[2019-03-27] MEDS ORDERED: PROPOFOL INJ 200 MG/20 ML VIAL IV ONE (11:16)
[2019-03-27] MEDS ORDERED: LIDOCAINE 2% INJ-PF (20 MG/ML) 10 ML AMPUL NEB ONE (12:48)
[2019-03-27] MEDS ORDERED: LIDOCAINE 1% INJ-PF (10 MG/ML) 30 ML SDV ONE (12:48)
[2019-03-27] MEDS ORDERED: PROMETHAZINE HCL INJ 25 MG/1 ML VIAL ONE (12:48)
--- NOTE | 2019-03-27 13:12 | PDOC CONSULTATION ---
Consultation Consult Date: 03/27/19 Attending physician:: ALDO HECTOR History of Present Illness Admission Date/PCP: 03/27/19 12:18 JASWINDER DAWN PA-C History of Present Illness: CAMILA DAWN is a 34 year old femalethat presents to the emergency department for chief complaint of nausea vomiting and lockjaw. Patient reports nausea and vomiting that began yesterday. She states she had 2 episodes of fecal incontinence. Patient denies any other diarrhea and states she believes she actually might be constipated from her chronic pain medication. Patient does have Zofran at home which she has taken with minimal relief of her nausea. She did receive Zofran by EMS prior to arrival and states it has helped but she still feels nauseated. She reports diffuse abdominal pain that began when she started vomiting yesterday. The pain is crampy and intermittent and worse on the left side. She denies aggravating or relieving factors to her pain. 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 she also c/o inability to close her jaw after vomiting ct obtained in er consult obtained for sbo with possible intussesception Past Medical History Cardiac Medical History: Denies: Coronary Artery Disease, Myocardial Infarction, Hypertension Pulmonary Medical History: Denies: Asthma, Bronchitis, Chronic Obstructive Pulmonary Disease (COPD), Pneumonia Neurological Medical History: Denies: Seizures Musculoskeltal Medical History: Denies: Arthritis Hematology: Denies: Anemia Past Surgical History Past Surgical History: Reports: Cholecystectomy, Tubal Ligation, Other - RIGHT NEPHRECTOMY, partial pancreatectomy, omentectomy, partial hepatectomy Social History Smoking Status: Unknown if Ever Smoked Frequency of Alcohol Use: None Hx Recreational Drug Use: No Drugs: None Hx Prescription Drug Abuse: No Family History Family History: Reviewed & Not Pertinent Parental Family History Reviewed: No Children Family History Reviewed: NA Sibling(s) Family History Reviewed.: NA Medication/Allergy Home Medications: Alprazolam [Xanax 0.5 mg Tablet] 0.5 mg PO DAILYP PRN 03/27/19 Naloxone HCl [Narcan] 4 mg NS ASDIR PRN 03/27/19 Ondansetron [Ondansetron Odt] 8 mg PO Q8HP PRN 03/27/19 Oxycodone HCl [Oxycodone HCl 10 MG Tablet] 10 mg PO Q4HP PRN 03/27/19 Oxycodone Myristate [Xtampza ER] 54 mg PO Q8 03/27/19 Ranitidine HCl [Zantac 150 mg Tablet] 150 mg PO BID 03/27/19 Allergies/Adverse Reactions: ibuprofen [From Advil] Allergy (Severe, Verified 10/16/15 10:27) RASH tramadol [Tramadol] Adverse Reaction (Severe, Verified 10/16/15 10:27) dizzy Review of Systems Constitutional: PRESENT: anorexia, fatigue, weight loss Eyes: ABSENT: visual disturbances Ears: ABSENT: hearing changes Nose, Mouth, and Throat: PRESENT: other - c/o inablitiy close jaw Breasts: PRESENT: as per HPI, other Cardiovascular: ABSENT: chest pain, dyspnea on exertion, edema, orthropnea, palpitations Gastrointestinal: PRESENT: abdominal pain, constipation, heartburn, nausea, vomiting Genitourinary: PRESENT: other Musculoskeletal: PRESENT: muscle weakness Integumentary: PRESENT: diaphoresis Neurological: ABSENT: abnormal gait, abnormal speech, confusion, dizziness, focal weakness, syncope Psychiatric: ABSENT: anxiety, depression, homidical ideation, suicidal ideation Endocrine: ABSENT: cold intolerance, heat intolerance, polydipsia, polyuria Hematologic/Lymphatic: ABSENT: easy bleeding, easy bruising Physical Exam Vital Signs: Temp Pulse Resp BP Pulse Ox 97.6 F 86 19 119/83 03/27/19 07:09 03/27/19 07:09 03/27/19 07:09 03/27/19 07:09 Intake & Output 03/26/19 03/27/19 03/28/19 06:59 06:59 06:59 Intake Total 1000 Balance 1000 Weight 44.906 kg General appearance: PRESENT: mild distress, severe distress, thin Head exam: PRESENT: normocephalic Eye exam: PRESENT: EOMI Mouth exam: PRESENT: other - jaw dislocation Teeth exam: PRESENT: poor dentation Neck exam: PRESENT: full ROM Respiratory exam: PRESENT: clear to auscultation emilia Cardiovascular exam: PRESENT: RRR Pulses: PRESENT: normal radial pulses, normal femoral pulses Vascular exam: PRESENT: normal capillary refill GI/Abdominal exam: PRESENT: distended, firm Rectal exam: PRESENT: deferred Gentrourinary exam: PRESENT: other Extremities exam: PRESENT: full ROM Musculoskeletal exam: PRESENT: other Neurological exam: PRESENT: alert, awake, oriented to person, oriented to place, oriented to time Skin exam: PRESENT: dry Results Laboratory Results: 03/27/19 07:30 03/27/19 08:18 03/27/19 03/27/19 03/27/19 07:30 07:30 07:55 WBC 9.9 RBC 4.20 Hgb 11.6 L Hct 35.7 L MCV 85 MCH 27.7 MCHC 32.7 RDW 14.3 H Plt Count 182 Seg Neutrophils % 83.1 H Lymphocytes % 8.4 L Monocytes % 8.1 Eosinophils % 0.1 Basophils % 0.3 Absolute Neutrophils 8.2 Absolute Lymphocytes 0.8 Absolute Monocytes 0.8 Absolute Eosinophils 0.0 Absolute Basophils 0.0 Sodium Cancelled Potassium Cancelled Chloride Cancelled Carbon Dioxide Cancelled Anion Gap Cancelled BUN Cancelled Creatinine Cancelled Est GFR ( Amer) Cancelled Est GFR (Non-Af Amer) Cancelled Glucose Cancelled Calcium Cancelled Total Bilirubin Cancelled AST Cancelled ALT Cancelled Alkaline Phosphatase Cancelled Total Protein Cancelled Albumin Cancelled Lipase Cancelled Urine Color REGINALD Urine Appearance SLIGHTLY-CLOUDY Urine pH 5.0 Ur Specific [place] 1.020 Urine Protein NEGATIVE Urine Glucose (UA) NEGATIVE Urine Ketones 20 H Urine Blood NEGATIVE Urine Nitrite NEGATIVE Ur Leukocyte Esterase TRACE H Urine WBC (Auto) 6 Urine RBC (Auto) 0 03/27/19 08:18 WBC RBC Hgb Hct MCV MCH MCHC RDW Plt Count Seg Neutrophils % Lymphocytes % Monocytes % Eosinophils % Basophils % Absolute Neutrophils Absolute Lymphocytes Absolute Monocytes Absolute Eosinophils Absolute Basophils Sodium 137.6 Potassium 3.7 Chloride 98 Carbon Dioxide 30 Anion Gap 10 BUN 13 Creatinine 0.81 Est GFR ( Amer) > 60 Est GFR (Non-Af Amer) > 60 Glucose 98 Calcium 7.9 L Total Bilirubin 1.2 AST 32 ALT 36 Alkaline Phosphatase 533 H Total Protein 5.7 L Albumin 2.6 L Lipase 111.4 Urine Color Urine Appearance Urine pH Ur Specific [place] Urine Protein Urine Glucose (UA) Urine Ketones Urine Blood Urine Nitrite Ur Leukocyte Esterase Urine WBC (Auto) Urine RBC (Auto) Impressions: Facial Bones CT 03/27/19 00:00 IMPRESSION: Bilateral dislocation of the temporomandibular joints with dislocation of the mandibular condyles anterior to the articular eminences. No associated fracture. Abdomen/Pelvis CT 03/27/19 07:31 IMPRESSION: Small bowel intussusception in the pelvis, with resulting small bowel obstruction. Progression of metastatic sarcoma with involvement of the left atrium, liver, nephrectomy day, and posterior pelvic cul-de-sac with med to the posterior uter ine body. Assessment & Plan - Plan Summary Plan Summary: Impression mild bowel obstruction secondary to intestinal intussusception 2.Metastatic abdominal sarcoma 3. Jaw dislocation. Evaluation of the patient's CAT scan shows metastatic sarcoma involving most of her liver and multiple sites of metastatic disease. I had a long discussion with her oncologist Dr. Chitra holguin felt that the patient is at end-stage at this point that we should discuss palliation with her as opposed to surgical intervention. Also had a long discussion with the patient and her family understand that surgical intervention could be entertained for a small bowel bypass or small bowel resection however as of her previous extensive surgical interventions, a laparotomy further small bowel obstruction and treatment of her intussusception could be a very complicated would not change the poor prognosis of her disease. Family and the patient both want to entertain none operative meds at this time and over the possibility of palliative treatment At this time surgery will continue to follow the patient.
--- NOTE | 2019-03-27 13:34 | RADIOLOGY REPORT (SQ) ---
EXAM DESCRIPTION: KUB/ABDOMEN (SINGLE VIEW) COMPLETED DATE/TIME: 03/27/2019 12:49 pm REASON FOR STUDY: Check Placement of NG Tube COMPARISON: CT abdomen pelvis 03/27/2019 PET-CT 12/25/2018 NUMBER OF VIEWS: One view. TECHNIQUE: Supine radiographic image of the abdomen acquired. LIMITATIONS: None. FINDINGS: Abdominal film for nasogastric tube placement. There is a nasogastric tube with the tip a nd side port in the stomach. Persistent dilated small bowel loops in the mid abdomen. Clips post right nephrectomy. The chest is partially included in the field of view. A large right hilar mass is present, about 9 c m in diameter (was 3.6 cm in diameter on 12/25/2018). IMPRESSION: Nasogastric tube tip and side port in the stomach. Persistent dilated air-filled small bowel loops in the mid abdomen TECHNICAL DOCUMENTATION: JOB ID: [id number] [employer]- All Rights Reserved Reading location - IP/workstation name: [email or web address]
[2019-03-27] MEDS ORDERED: ONDANSETRON HCL INJ/PF 4 MG/2 ML SDV IV PRN (14:05)
[2019-03-27] MEDS ORDERED: RINGERS SOLUTION,LACTATED 1,000 ML IV PRN (14:05)
[2019-03-27] MEDS ORDERED: DEXTROSE 50%-WATER 25 GM/50 ML DISP.SYRIN IV PRN ×2 (14:05)
[2019-03-27] MEDS ORDERED: GLUCAGON,HUMAN RECOMB 1 MG INJ SUBCUT PRN (14:05)
[2019-03-27] MEDS ORDERED: DEXTROSE 40% GEL 15 GM TUBE PO PRN ×2 (14:05)
[2019-03-27] MEDS ORDERED: MORPHINE SULFATE 10 MG/ML INJ IV PRN (14:27)
[2019-03-27] MEDS: ONDANSETRON HCL INJ/PF 4 MG/2 ML SDV IV PRN (15:55)
[2019-03-27] MEDS: MORPHINE SULFATE 10 MG/ML INJ IV PRN (15:55)
[2019-03-27] MEDS: LORAZEPAM INJ 2 MG/1 ML VIAL IV PRN (16:05)
--- NOTE | 2019-03-27 17:10 | PDOC CONSULTATION ---
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 It would require jaw wiring to keep the jaw in place. She is not a candidate for that at this point. In terms of her intussusception this was evaluated by surgery and given her progressive disease, no surgical option was available. Therefore we discussed comfort care with her and she agrees with this. Agreed with DNR as well, and we discussed comfort care at home versus in patient hospice. Recommended that she would be more comfortable and inpatient hospice. Past Medical History Cardiac Medical History: Denies: Coronary Artery Disease, Myocardial Infarction, Hypertension Pulmonary Medical History: Denies: Asthma, Bronchitis, Chronic Obstructive Pulmonary Disease (COPD), Pneumonia Neurological Medical History: Denies: Seizures Malignancy Medical History: Reports: Other - Stage IV sarcoma Musculoskeltal Medical History: Denies: Arthritis Hematology: Denies: Anemia Past Surgical History Past Surgical History: Reports: Cholecystectomy, Tubal Ligation, Other - RIGHT NEPHRECTOMY, partial pancreatectomy, omentectomy, partial hepatectomy Social History Smoking Status: Unknown if Ever Smoked Frequency of Alcohol Use: None Hx Recreational Drug Use: No Drugs: None Hx Prescription Drug Abuse: No - Advance Directive Resuscitation Status: Do Not Resuscitate Family History Family History: Reviewed & Not Pertinent Parental Family History Reviewed: Yes Children Family History Reviewed: Yes Sibling(s) Family History Reviewed.: Yes Medication/Allergy Home Medications: Alprazolam [Xanax 0.5 mg Tablet] 0.5 mg PO DAILYP PRN 03/27/19 Naloxone HCl [Narcan] 4 mg NS ASDIR PRN 03/27/19 Ondansetron [Ondansetron Odt] 8 mg PO Q8HP PRN 03/27/19 Oxycodone HCl [Oxycodone HCl 10 MG Tablet] 10 mg PO Q4HP PRN 03/27/19 Oxycodone Myristate [Xtampza ER] 27 mg PO Q8 03/27/19 Ranitidine HCl [Zantac 150 mg Tablet] 150 mg PO BID 03/27/19 Allergies/Adverse Reactions: ibuprofen [From Advil] Allergy (Severe, Verified 10/16/15 10:27) RASH tramadol [Tramadol] Adverse Reaction (Severe, Verified 10/16/15 10:27) dizzy Review of Systems Constitutional: PRESENT: anorexia, fatigue, weakness Nose, Mouth, and Throat: PRESENT: mouth pain Cardiovascular: ABSENT: chest pain, dyspnea on exertion, edema, orthropnea, palpitations Gastrointestinal: PRESENT: abdominal pain, bloating, melena, nausea, vomiting Musculoskeletal: PRESENT: back pain Physical Exam Vital Signs: Temp Pulse Resp BP Pulse Ox 97.6 F 86 21 H 100/75 99 03/27/19 07:09 03/27/19 07:09 03/27/19 15:01 03/27/19 15:01 03/27/19 15:01 Intake & Output 03/26/19 03/27/19 03/28/19 06:59 06:59 06:59 Intake Total 1000 Balance 1000 Weight 44.906 kg General appearance: PRESENT: mild distress Mouth exam: PRESENT: other - jaw dislocation noted Respiratory exam: PRESENT: clear to auscultation emilia. ABSENT: rales, rhonchi, wheezes Cardiovascular exam: PRESENT: tachycardia GI/Abdominal exam: PRESENT: distended Neurological exam: PRESENT: alert, oriented to person Results Laboratory Results: 03/27/19 07:30 03/27/19 08:18 03/27/19 03/27/19 03/27/19 07:30 07:30 07:55 WBC 9.9 RBC 4.20 Hgb 11.6 L Hct 35.7 L MCV 85 MCH 27.7 MCHC 32.7 RDW 14.3 H Plt Count 182 Seg Neutrophils % 83.1 H Lymphocytes % 8.4 L Monocytes % 8.1 Eosinophils % 0.1 Basophils % 0.3 Absolute Neutrophils 8.2 Absolute Lymphocytes 0.8 Absolute Monocytes 0.8 Absolute Eosinophils 0.0 Absolute Basophils 0.0 Sodium Cancelled Potassium Cancelled Chloride Cancelled Carbon Dioxide Cancelled Anion Gap Cancelled BUN Cancelled Creatinine Cancelled Est GFR ( Amer) Cancelled Est GFR (Non-Af Amer) Cancelled Glucose Cancelled Calcium Cancelled Total Bilirubin Cancelled AST Cancelled ALT Cancelled Alkaline Phosphatase Cancelled Total Protein Cancelled Albumin Cancelled Lipase Cancelled Urine Color REGINALD Urine Appearance SLIGHTLY-CLOUDY Urine pH 5.0 Ur Specific [place] 1.020 Urine Protein NEGATIVE Urine Glucose (UA) NEGATIVE Urine Ketones 20 H Urine Blood NEGATIVE Urine Nitrite NEGATIVE Ur Leukocyte Esterase TRACE H Urine WBC (Auto) 6 Urine RBC (Auto) 0 03/27/19 08:18 WBC RBC Hgb Hct MCV MCH MCHC RDW Plt Count Seg Neutrophils % Lymphocytes % Monocytes % Eosinophils % Basophils % Absolute Neutrophils Absolute Lymphocytes Absolute Monocytes Absolute Eosinophils Absolute Basophils Sodium 137.6 Potassium 3.7 Chloride 98 Carbon Dioxide 30 Anion Gap 10 BUN 13 Creatinine 0.81 Est GFR ( Amer) > 60 Est GFR (Non-Af Amer) > 60 Glucose 98 Calcium 7.9 L Total Bilirubin 1.2 AST 32 ALT 36 Alkaline Phosphatase 533 H Total Protein 5.7 L Albumin 2.6 L Lipase 111.4 Urine Color Urine Appearance Urine pH Ur Specific [place] Urine Protein Urine Glucose (UA) Urine Ketones Urine Blood Urine Nitrite Ur Leukocyte Esterase Urine WBC (Auto) Urine RBC (Auto) Impressions: Facial Bones CT 03/27/19 00:00 IMPRESSION: Bilateral dislocation of the temporomandibular joints with dislocation of the mandibular condyles anterior to the articular eminences. No associated fracture. Abdomen/Pelvis CT 03/27/19 07:31 IMPRESSION: Small bowel intussusception in the pelvis, with resulting small bowel obstruction. 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 KUB X-Ray 03/27/19 10:51 IMPRESSION: Nasogastric tube tip and side port in the stomach. 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 [facility] is discussing with family who are on their way in from home. Based upon their decision will decide on home versus inpatient hospice. DNR in place. (2) Jaw dislocation Qualifiers: Encounter type: initial encounter Qualified Code(s): S03.00XA - Dislocation of jaw, unspecified side, initial encounter Is this a current diagnosis for this admission?: Yes Plan: Unfortunately, would require jaw wiring which she is not a candidate for at this point. Pain control only. (3) Small bowel obstruction Is this a current diagnosis for this admission?: Yes Plan: No surgery planned, comfort care only - Time Time Spent: Greater than 70 Minutes - Inpatient Certification Based on my medical assessment, after consideration of the patient's comorbidities, presenting symptoms, or acuity I expect that the services needed warrant INPATIENT care.: Yes I certify that my determination is in accordance with my understanding of Medicare's requirements for reasonable and necessary INPATIENT services [42 CFR 412.3e].: Yes Medical Necessity: Need for Pain Control, Risk of Complication if Not Cared For in Hospital
[2019-03-27] MEDS: HYDROMORPHONE HCL INJ/PF 2 MG/ML AMPULE IV PRN ×2 (18:45→22:25)
--- NOTE | 2019-03-27 20:16 | PDOC H&P ---
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 She was having symptoms without a definitive diagnosis for 2 years and has been diagnosed for 5 years. She has failed multiple regimens of treatments. Today she presents for abdominal pain with intractable nausea and vomiting. She always has a degree of abdominal pain but for the last several days it has been much worse. Other symptoms include chronic constipation with intermittent watery diarrhea. She always feels cold but denies fever or chills. When she is feeling good her appetite is reasonable but it has been quite poor lately. Diagnostic imaging revealed that she has dislocated her mandible anteriorly likely from retching. Dr. Palmer attempted to replace but it dislocated immediately thereafter. This was tried again with subsequent failure. In addition to her diffusely metastatic disease and intussusception in the small bowel was also identified with obstruction. Past Medical History Cardiac Medical History: Denies: Coronary Artery Disease, Myocardial Infarction, Hypertension Pulmonary Medical History: Denies: Asthma, Bronchitis, Chronic Obstructive Pulmonary Disease (COPD), Pneumonia Neurological Medical History: Denies: Seizures Malignancy Medical History: Reports: Other - Diffusely metastatic sarcoma Musculoskeltal Medical History: Denies: Arthritis Hematology: Denies: Anemia Past Surgical History Past Surgical History: Reports: Cholecystectomy, Tubal Ligation, Other - RIGHT NEPHRECTOMY, partial pancreatectomy, omentectomy, partial hepatectomy Social History Information Source: Patient, Parent, Relative - Siblings and children Lives with: Family Smoking Status: Former Smoker Frequency of Alcohol Use: None Hx Recreational Drug Use: No Drugs: None Hx Prescription Drug Abuse: No - Advance Directive Resuscitation Status: Do Not Resuscitate Surrogate healthcare decision maker:: Patient does not have a living will or healthcare proxy. Many family members present and I am not aware of the selected decision maker would be. It certainly would be a combination of her mother, siblings and children although I believe the children would be primary. Family History Family History: Reviewed & Not Pertinent, DM, Hypertension, Malignancy, Other - Alzheimer's Parental Family History Reviewed: Yes Children Family History Reviewed: Yes Sibling(s) Family History Reviewed.: Yes Medication/Allergy Home Medications: Alprazolam [Xanax 0.5 mg Tablet] 0.5 mg PO DAILYP PRN 03/27/19 Naloxone HCl [Narcan] 4 mg NS ASDIR PRN 03/27/19 Ondansetron [Ondansetron Odt] 8 mg PO Q8HP PRN 03/27/19 Oxycodone HCl [Oxycodone HCl 10 MG Tablet] 10 mg PO Q4HP PRN 03/27/19 Oxycodone Myristate [Xtampza ER] 27 mg PO Q8 03/27/19 Ranitidine HCl [Zantac 150 mg Tablet] 150 mg PO BID 03/27/19 Allergies/Adverse Reactions: ibuprofen [From Advil] Allergy (Severe, Verified 10/16/15 10:27) RASH tramadol [Tramadol] Adverse Reaction (Severe, Verified 10/16/15 10:27) dizzy Review of Systems Constitutional: PRESENT: anorexia, weakness, weight loss Eyes: PRESENT: visual disturbances - Reports occasional blurry vision Ears: ABSENT: hearing changes Nose, Mouth, and Throat: PRESENT: mouth pain - Dislocated mandible, other - Nasogastric tube in place Cardiovascular: ABSENT: chest pain, edema, palpitations Respiratory: ABSENT: cough, hemoptysis Gastrointestinal: PRESENT: abdominal pain, constipation, nausea, vomiting. ABSENT: heartburn, melena Genitourinary: ABSENT: dysuria, hematuria Musculoskeletal: PRESENT: other - Marked decrease in muscle mass. ABSENT: joint swelling Integumentary: ABSENT: rash, wounds Neurological: PRESENT: other - Dysarthria from dislocated mandible Psychiatric: PRESENT: anxiety, depression Endocrine: ABSENT: cold intolerance, heat intolerance Hematologic/Lymphatic: ABSENT: easy bleeding Physical Exam Vital Signs: Temp Pulse Resp BP Pulse Ox 97.6 F 86 19 119/83 03/27/19 07:09 03/27/19 07:09 03/27/19 07:09 03/27/19 07:09 Intake & Output 03/26/19 03/27/19 03/28/19 06:59 06:59 06:59 Intake Total 1000 Balance 1000 Weight 44.906 kg General appearance: PRESENT: severe distress, thin Head exam: PRESENT: other - Temporal Wasting Eye exam: PRESENT: conjunctiva pale Ear exam: PRESENT: normal external ear exam Mouth exam: PRESENT: moist, tongue midline, other - NG tube in place Teeth exam: PRESENT: poor dentation Neck exam: ABSENT: JVD, lymphadenopathy Respiratory exam: PRESENT: decreased breath sounds, symmetrical, other. ABSENT: rales, rhonchi, stridor, tachypnea, wheezes Cardiovascular exam: PRESENT: RRR, +S1, +S2 GI/Abdominal exam: PRESENT: diminished bowel sounds, soft - Nasogastric tube in place, tenderness - Across the lower abdomen, other. ABSENT: distended, guarding Rectal exam: PRESENT: deferred Extremities exam: ABSENT: pedal edema Musculoskeletal exam: ABSENT: normal inspection - Decreased muscle mass Neurological exam: PRESENT: awake, oriented to person, oriented to place, oriented to situation. ABSENT: alert - Slightly groggy from medications given during attempted mandible relocation Psychiatric exam: PRESENT: agitated - Frustrated with her current condition and recent decline, appropriate affect - Affect reflects her significant discomfort. ABSENT: anxious Focused psych exam: ABSENT: delusional, restlessness Results Laboratory Results: 03/27/19 07:30 03/27/19 08:18 03/27/19 03/27/19 03/27/19 07:30 07:30 07:55 WBC 9.9 RBC 4.20 Hgb 11.6 L Hct 35.7 L MCV 85 MCH 27.7 MCHC 32.7 RDW 14.3 H Plt Count 182 Seg Neutrophils % 83.1 H Lymphocytes % 8.4 L Monocytes % 8.1 Eosinophils % 0.1 Basophils % 0.3 Absolute Neutrophils 8.2 Absolute Lymphocytes 0.8 Absolute Monocytes 0.8 Absolute Eosinophils 0.0 Absolute Basophils 0.0 Sodium Cancelled Potassium Cancelled Chloride Cancelled Carbon Dioxide Cancelled Anion Gap Cancelled BUN Cancelled Creatinine Cancelled Est GFR ( Amer) Cancelled Est GFR (Non-Af Amer) Cancelled Glucose Cancelled Calcium Cancelled Total Bilirubin Cancelled AST Cancelled ALT Cancelled Alkaline Phosphatase Cancelled Total Protein Cancelled Albumin Cancelled Lipase Cancelled Urine Color REGINALD Urine Appearance SLIGHTLY-CLOUDY Urine pH 5.0 Ur Specific Ferguson 1.020 Urine Protein NEGATIVE Urine Glucose (UA) NEGATIVE Urine Ketones 20 H Urine Blood NEGATIVE Urine Nitrite NEGATIVE Ur Leukocyte Esterase TRACE H Urine WBC (Auto) 6 Urine RBC (Auto) 0 03/27/19 08:18 WBC RBC Hgb Hct MCV MCH MCHC RDW Plt Count Seg Neutrophils % Lymphocytes % Monocytes % Eosinophils % Basophils % Absolute Neutrophils Absolute Lymphocytes Absolute Monocytes Absolute Eosinophils Absolute Basophils Sodium 137.6 Potassium 3.7 Chloride 98 Carbon Dioxide 30 Anion Gap 10 BUN 13 Creatinine 0.81 Est GFR ( Amer) > 60 Est GFR (Non-Af Amer) > 60 Glucose 98 Calcium 7.9 L Total Bilirubin 1.2 AST 32 ALT 36 Alkaline Phosphatase 533 H Total Protein 5.7 L Albumin 2.6 L Lipase 111.4 Urine Color Urine Appearance Urine pH Ur Specific Ferguson Urine Protein Urine Glucose (UA) Urine Ketones Urine Blood Urine Nitrite Ur Leukocyte Esterase Urine WBC (Auto) Urine RBC (Auto) Impressions: Facial Bones CT 03/27/19 00:00 IMPRESSION: Bilateral dislocation of the temporomandibular joints with dislocation of the mandibular condyles anterior to the articular eminences. No associated fracture. Abdomen/Pelvis CT 03/27/19 07:31 IMPRESSION: Small bowel intussusception in the pelvis, with resulting small bowel obstruction. 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 KUB X-Ray 03/27/19 10:51 IMPRESSION: Nasogastric tube tip and side port in the stomach. Persistent dilated air-filled small bowel loops in the mid abdomen Assessment and Plan - Diagnosis (1) Intussusception Is this a current diagnosis for this admission?: Yes Plan: This is the cause of her small bowel obstruction and abdominal pain. She has a NG tube in place. Surgery has seen the patient and she is not a candidate for any surgical intervention. Symptom management at this time. We will utilize intravenous narcotic analgesia and antiemetics. (2) Small bowel obstruction Is this a current diagnosis for this admission?: Yes Plan: A nasogastric tube is in place. It is draining gastric secretions with scattered bits of debris. The nasogastric tube is quite uncomfortable for the patient. She understands that if the tube is removed she will continue to vomit. (3) Jaw dislocation Qualifiers: Encounter type: initial encounter Qualified Code(s): S03.00XA - Dislocation of jaw, unspecified side, initial encounter Is this a current diagnosis for this admission?: Yes Plan: Secondary to retching and vomiting. 2 attempts were made to relocate the mandible both failed. The patient is not a candidate for surgical intervention. (4) Intractable vomiting with nausea Qualifiers: Vomiting type: cyclical vomiting Qualified Code(s): G43.A1 - Cyclical vomiting, intractable Is this a current diagnosis for this admission?: Yes Plan: Secondary to the bowel obstruction. Symptomatic treatment including nasogastric tube. 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 She has failed multiple and still has diffusely metastatic disease with significant decline over the last several months. Hospice will be seeing the patient as well. - Time Time Spent with patient: 75 minutes - Inpatient Certification Based on my medical assessment, after consideration of the patient's comorbidities, presenting symptoms, or acuity I expect that the services needed warrant INPATIENT care.: Yes I certify that my determination is in accordance with my understanding of Medicare's requirements for reasonable and necessary INPATIENT services [42 CFR 412.3e].: Yes Medical Necessity: Significant Comorbidiites Make Outpatient Treatment Too Risky, Need Close Monitoring Due to Risk of Patient Decompensation, Need for Pain Control
--- NOTE | 2019-03-27 20:18 | ADVANCED CARE ---
- Diagnosis (1) Intussusception Diagnosis Current: Yes (2) Small bowel obstruction Diagnosis Current: Yes (3) Jaw dislocation Diagnosis Current: Yes (4) Intractable vomiting with nausea Diagnosis Current: Yes (5) Malignant neoplasm of connective or soft tissue Diagnosis Current: Yes Attendance: Patient as well as children and multiple family members Resuscitation Status: Do Not Resuscitate Discussion: Hospice will be seeing the patient. I did speak to the oncologist by phone and he states that he has been working with the patient and suggesting hospice for several months. With these new complications it is to the point where she is suffering daily. Her [id number] is and the due date is mid March. The patient would like to try and stay alive to see her grandchild. Care Planning Goals: As noted above. Hospice and oncology will be seeing the patient. Document(s) Completed: None Time Spent: 20 minutes
[2019-03-27] MEDS: PROMETHAZINE HCL INJ 25 MG/1 ML VIAL IV PRN (21:22)
[2019-03-27] MEDS: PANTOPRAZOLE SODIUM 40 MG VIAL IV SCH (22:38)
[2019-03-28] MEDS: MORPHINE SULFATE 10 MG/ML INJ IV PRN ×2 (01:00→06:31)
[2019-03-28] MEDS: HYDROMORPHONE HCL INJ/PF 2 MG/ML AMPULE IV PRN (03:55)
[2019-03-28] MEDS ORDERED: FENTANYL 50 MCG/HR PATCH.TD72 TD SCH (08:00)
[2019-03-28] MEDS ORDERED: MORPHINE SULFATE 10 MG/ML INJ IV SCH (08:00)
[2019-03-28] MEDS: MORPHINE SULFATE 60 MG/60 ML RTUINJ IV PRN (09:54)
[2019-03-28] MEDS: ONDANSETRON HCL INJ/PF 4 MG/2 ML SDV IV PRN (10:09)
[2019-03-28] MEDS: PANTOPRAZOLE SODIUM 40 MG VIAL IV SCH ×2 (10:10→21:40)
--- NOTE | 2019-03-28 12:51 | PDOC PROGRESS REPORT ---
Subjective Progress Note for:: 03/28/19 Subjective:: Patient was seen on morning rounds. She is holding a cold pack to her jaw and requesting that we try again to re-position her jaw. According to previous notes, she is not a candidate for this procedure. She also requests that the NG tube be removed. Reason For Visit: BOWEL OBSTRUCTION,INTUSSUSCEPTION,INTRACTABLE NAUS Physical Exam Vital Signs: Temp Pulse Resp BP Pulse Ox 97.4 F 101 H 16 121/78 99 03/27/19 17:10 03/27/19 17:10 03/27/19 17:10 03/27/19 17:10 03/27/19 17:10 Intake & Output 03/27/19 03/28/19 03/29/19 06:59 06:59 06:59 Intake Total 1000 Balance 1000 Weight 44.906 kg General appearance: PRESENT: thin Exam: cachectic female. In obvious pain. Jaw is immobile, but she is able to speak. NG tub is in place and is to suction. Respiratory exam: PRESENT: unlabored Extremities exam: ABSENT: pedal edema Neurological exam: PRESENT: alert, awake Psychiatric exam: PRESENT: appropriate affect, depressed Skin exam: PRESENT: normal color Results Laboratory Results: 03/27/19 07:30 03/27/19 08:18 Impressions: Facial Bones CT 03/27/19 00:00 IMPRESSION: Bilateral dislocation of the temporomandibular joints with dislocation of the mandibular condyles anterior to the articular eminences. No associated fracture. Abdomen/Pelvis CT 03/27/19 07:31 IMPRESSION: Small bowel intussusception in the pelvis, with resulting small bowel obstruction. 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 KUB X-Ray 03/27/19 10:51 IMPRESSION: Nasogastric tube tip and side port in the stomach. Persistent dilated air-filled small bowel loops in the mid abdomen Assessment & Plan - Diagnosis (1) Malignant neoplasm of connective or soft tissue Is this a current diagnosis for this admission?: Yes Plan: End Stage Sarcoma. Not a candidate for further therapy. Hospice appropriate. (2) Jaw dislocation Qualifiers: Encounter type: initial encounter Qualified Code(s): S03.00XA - Dislocation of jaw, unspecified side, initial encounter Is this a current diagnosis for this admission?: Yes Plan: Further treatment for this would involve a major surgery to immobilize the entire jaw. It is not felt that she would survive this type of procedure. (3) Small bowel obstruction Is this a current diagnosis for this admission?: Yes Plan: Continue NG tube. Patient may be allowed to try to drink for comfort. (4) Cancer associated pain Is this a current diagnosis for this admission?: Yes Plan: I will start Morphine [employer] and titrate basal rate to patient's comfort. Await decision as to inpatient Hospice vs. Continued care here.
[2019-03-28] MEDS: LORAZEPAM INJ 2 MG/1 ML VIAL IV PRN (16:14)
[2019-03-28] MEDS: BENZOCAINE 20% AEROSOL SPRAY 60 GM TP PRN (22:50)
[2019-03-29] MEDS: LORAZEPAM INJ 2 MG/1 ML VIAL IV PRN ×2 (01:10→09:44)
[2019-03-29] MEDS ORDERED: LEVALBUTEROL HCL NEB 0.63 MG/3 ML AMPUL NEB PRN (04:30)
[2019-03-29] MEDS: BENZOCAINE 20% AEROSOL SPRAY 60 GM TP PRN ×2 (04:41→07:52)
--- NOTE | 2019-03-29 08:24 | PDOC PROGRESS REPORT ---
Subjective Progress Note for:: 03/28/19 Subjective:: The patient is currently on a pain pump. Her jaw is wrapped with Coban to support it. She is quite groggy. Reason For Visit: BOWEL OBSTRUCTION,INTUSSUSCEPTION,INTRACTABLE NAUS Physical Exam Vital Signs: Temp Pulse Resp BP Pulse Ox 97.4 F 99 16 105/67 95 03/28/19 19:16 03/28/19 19:16 03/28/19 19:16 03/28/19 19:16 03/28/19 19:16 Intake & Output 03/28/19 03/29/19 03/30/19 06:59 06:59 06:59 Intake Total 1000 Output Total 1800 650 Balance 1000 -1800 -650 Weight 44.906 kg General appearance: PRESENT: mild distress, thin Head exam: PRESENT: other - Temporal wasting. Elastic bandage to try and hold mandible in place. Mouth exam: PRESENT: moist, other - Nasogastric tube in place Respiratory exam: PRESENT: decreased breath sounds, symmetrical, other - Shallow breath sounds. ABSENT: tachypnea Cardiovascular exam: PRESENT: RRR, +S1, +S2 GI/Abdominal exam: PRESENT: normal bowel sounds, soft. ABSENT: distended, tenderness Rectal exam: PRESENT: deferred Neurological exam: PRESENT: awake, oriented to person, oriented to place, oriented to situation. ABSENT: alert - Somewhat lethargic. Likely from pain medication. Psychiatric exam: PRESENT: flat affect Results Laboratory Results: 03/27/19 07:30 03/27/19 08:18 Impressions: Facial Bones CT 03/27/19 00:00 IMPRESSION: Bilateral dislocation of the temporomandibular joints with disl ocation of the mandibular condyles anterior to the articular eminences. No associated fracture. Abdomen/Pelvis CT 03/27/19 07:31 IMPRESSION: Small bowel intussusception in the pelvis, with resulting small bowel obstruction. 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 KUB X-Ray 03/27/19 10:51 IMPRESSION: Nasogastric tube tip and side port in the stomach. Persistent dilated air-filled small bowel loops in the mid abdomen Assessment and Plan - Diagnosis (1) Intussusception Is this a current diagnosis for this admission?: Yes Plan: She is not a surgical candidate. Conservative therapy. Continue NG tube and analgesia. (2) Small bowel obstruction Is this a current diagnosis for this admission?: Yes Plan: As above. She is allowed ice chips and sips of fluids for comfort. (3) Jaw dislocation Qualifiers: Encounter type: initial encounter Qualified Code(s): S03.00XA - Dislocation of jaw, unspecified side, initial encounter Is this a current diagnosis for this admission?: Yes Plan: Currently supported with a elastic bandage. (4) Intractable vomiting with nausea Qualifiers: Vomiting type: cyclical vomiting Qualified Code(s): G43.A1 - Cyclical vomiting, intractable Is this a current diagnosis for this admission?: Yes Plan: Nasogastric tube in place. Antiemetics available. (5) Malignant neoplasm of connective or soft tissue Is this a current diagnosis for this admission?: Yes Plan: End-stage metastatic malignancy. Hospice as well as oncology are seeing the patient. Her granddaughter should be delivered later this evening. When she is able to see her granddaughter, I believe she will be on hospice care. At this point comfort care would be appropriate. - Time Time Spent with patient: Less than 15 minutes Medications reviewed and adjusted accordingly: Yes Anticipated discharge: Hospice
--- NOTE | 2019-03-29 08:39 | PDOC PROGRESS REPORT ---
Subjective Progress Note for:: 03/29/19 Subjective:: Patient had severe pain overall throughout the day yesterday. She was started on LEASE BUYER I increased the dosing today. She wanted to see her new first great-granddaughter, she was able to see her last night and today. Hopefully she will be able to be transferred to v or hospice. I had a long discussion with family about the necessity for hospice inpatient versus outpatient hospice. I believe she is best qualified for inpatient hospice for symptom control and management. I also spoke with them that is eminent probably within the next 7 to 10 days, but may be within the next 48 to 72 hours. Reason For Visit: BOWEL OBSTRUCTION,INTUSSUSCEPTION,INTRACTABLE NAUS Physical Exam Vital Signs: Temp Pulse Resp BP Pulse Ox 97.4 F 99 16 105/67 95 03/28/19 19:16 03/28/19 19:16 03/28/19 19:16 03/28/19 19:16 03/28/19 19:16 Intake & Output 03/28/19 03/29/19 03/30/19 06:59 06:59 06:59 Intake Total 1000 Output Total 1800 650 Balance 1000 -1800 -650 Weight 44.906 kg General appearance: PRESENT: mild distress, thin Mouth exam: PRESENT: dry mucosa Results Laboratory Results: 03/27/19 07:30 03/27/19 08:18 Impressions: Facial Bones CT 03/27/19 00:00 IMPRESSION: Bilateral dislocation of the temporomandibular joints with dislocation of the mandibular condyles anterior to the articular eminences. No associated fracture. Abdomen/Pelvis CT 03/27/19 07:31 IMPRESSION: Small bowel intussusception in the pelvis, with resulting small bowel obstruction. 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 KUB X-Ray 03/27/19 10:51 IMPRESSION: Nasogastric tube tip and side port in the stomach. Persistent dilated air-filled small bowel loops in the mid abdomen Assessment & Plan - Diagnosis (1) Malignant neoplasm of connective or soft tissue Is this a current diagnosis for this admission?: Yes Plan: No further treatment planned, patient going to hospice, had long discussion with patient about end-of-life care, spent greater than 35 minutes in discussion with family and patient (2) Jaw dislocation Qualifiers: Encounter type: subsequent encounter Qualified Code(s): S03.00XD - Dislocation of jaw, unspecified side, subsequent encounter Is this a current diagnosis for this admission?: Yes Plan: Unfortunately no intervention possible, only pain control (3) Small bowel obstruction Is this a current diagnosis for this admission?: Yes Plan: No intervention possible, only controlled symptom management
[2019-03-29] MEDS: PANTOPRAZOLE SODIUM 40 MG VIAL IV SCH ×2 (09:43→22:07)
[2019-03-29] MEDS: MORPHINE SULFATE 60 MG/60 ML RTUINJ IV PRN ×2 (12:53→23:01)
--- NOTE | 2019-03-29 18:24 | PDOC PROGRESS REPORT ---
Subjective Progress Note for:: 03/29/19 Subjective:: Multiple family members are present. The patient's [id number] had her baby last night. She was able to hold the baby. She still appears uncomfortable. She has a ELEVATOR [employer]STRUCTOR ELECTRIC pump at her disposal. Reason For Visit: BOWEL OBSTRUCTION,INTUSSUSCEPTION,INTRACTABLE NAUS Physical Exam Vital Signs: Temp Pulse Resp BP Pulse Ox 97.4 F 99 16 105/67 95 03/28/19 19:16 03/28/19 19:16 03/28/19 19:16 03/28/19 19:16 03/28/19 19:16 Intake & Output 03/28/19 03/29/19 03/30/19 06:59 06:59 06:59 Intake Total 1000 60 75 Output Total 1800 1000 Balance 1000 -0880 -925 Weight 44.906 kg General appearance: PRESENT: mild distress, thin Head exam: PRESENT: other - Elastic bandage holding jaw in place. Mouth exam: PRESENT: moist Respiratory exam: PRESENT: decreased breath sounds - Decreased inspiratory phase, unlabored. ABSENT: rales, rhonchi, wheezes Cardiovascular exam: PRESENT: RRR, +S1, +S2 GI/Abdominal exam: PRESENT: diminished bowel sounds, soft. ABSENT: distended Rectal exam: PRESENT: deferred Neurological exam: PRESENT: awake. ABSENT: alert - Lethargic Psychiatric exam: PRESENT: flat affect. ABSENT: agitated, anxious Focused psych exam: ABSENT: delusional Results Laboratory Results: 03/27/19 07:30 03/27/19 08:18 Impressions: Facial Bones CT 03/27/19 00:00 IMPRESSION: Bilateral dislocation of the temporomandibular joints with dislocation of the mandibular condyles anterior to the articular eminences. No associated fracture. Abdomen/Pelvis CT 03/27/19 07:31 IMPRESSION: Small bowel intussusception in the pelvis, with resulting small bowel obstruction. 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 KUB X-Ray 03/27/19 10:51 IMPRESSION: Nasogastric tube tip and side port in the stomach. Persistent dilated air-filled small bowel loops in the mid abdomen Assessment and Plan - Diagnosis (1) Intussusception Is this a current diagnosis for this admission?: Yes Plan: Continue nasogastric tube. Patient will be transferring to hospice tomorrow. (2) Small bowel obstruction Is this a current diagnosis for this admission?: Yes Plan: Nasogastric tube for gastric secretions. The patient is on a ELEVATOR [employer]STRUCTOR ELECTRIC pump for analgesia. (3) Jaw dislocation Qualifiers: Encounter type: subsequent encounter Qualified Code(s): S03.00XD - Dislocation of jaw, unspecified side, subsequent encounter Is this a current diagnosis for this admission?: Yes Plan: Currently held in place with elastic dressing (4) Intractable vomiting with nausea Qualifiers: Vomiting type: cyclical vomiting Qualified Code(s): G43.A1 - Cyclical vomiting, intractable Is this a current diagnosis for this admission?: Yes Plan: Improved with nasogastric tube and antiemetics (5) Malignant neoplasm of connective or soft tissue Is this a current diagnosis for this admission?: Yes Plan: The patient has been seen and accepted by hospice. She will be transferring to inpatient hospice tomorrow. Now that she has been able to see her newly born grandson she is at peace. - Time Time Spent with patient: 15-24 minutes Medications reviewed and adjusted accordingly: Yes Anticipated discharge: Hospice Within: within 24 hours
[2019-03-30] MEDS: BENZOCAINE 20% AEROSOL SPRAY 60 GM TP PRN ×3 (00:23→11:50)
[2019-03-30] MEDS: LORAZEPAM INJ 2 MG/1 ML VIAL IV PRN (00:23)
[2019-03-30] MEDS: PROMETHAZINE HCL INJ 25 MG/1 ML VIAL IV PRN (00:30)
[2019-03-30] MEDS: PANTOPRAZOLE SODIUM 40 MG VIAL IV SCH (08:59)
--- NOTE | 2019-03-30 09:34 | PDOC TRANSFER SUMMARY ---
General - Admit/Disc Date/PCP Admission Date/Primary Care Provider: 03/27/19 12:18 JASWINDER DAWN PA-C Discharge Date: 03/30/19 - Discharge Diagnosis (1) Intussusception Is this a current diagnosis for this admission?: Yes Summary: When the patient presented to the emergency department on March 27 she had had ongoing nausea and vomiting. The retching was bad enough to cause dislocation of her mandible. Her abdomen was scanned in the CT revealed an intussusception. Unfortunately the patient is not a surgical candidate. An nasogastric tube was inserted before management of emesis and has continued to produce gastric secretions. 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 Will manage her symptoms. Nasogastric tube is uncomfortable for her. She does have her cane and spray to relieve the discomfort. The tube can certainly be pulled however it is likely she will build up gastric secretions and have episodes of nausea and vomiting again. I will defer to the hospice house physician regarding removing the nasogastric tube. (2) Small bowel obstruction Is this a current diagnosis for this admission?: Yes Summary: Secondary to the intussusception. See plan above. (3) Jaw dislocation Is this a current diagnosis for this admission?: Yes Summary: As noted above the patient dislocated her mandible from repeated retching. She also has markedly decreased muscle mass and so there is probable laxity of connective tissue. Reduction of the dislocation was attempted in the emergency department and the mandible subsequently dislocated again. At this point, surgical intervention would be the next step however the patient is not a surgical candidate. She is transferring to inpatient hospice. Symptom management with the nasogastric tube to prevent emesis, Hurricaine spray to treat discomfort from the nasogastric tube and a co-band elastic dressing is being used to try and hold the mandible in place. Continue IV analgesia. (4) Intractable vomiting with nausea Is this a current diagnosis for this admission?: Yes Summary: She does seem to be responding to antiemetic therapy. As noted above she still has the nasogastric tube in place to control secretions. Continue as needed antiemetic medications. 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 Most recent PET scan reveals multiple rib lesions, multiple lung lesions and multiple liver lesions. She has had aggressive abdominal surgeries including nephrectomy and inferior vena cava reconstruction. She has received multiple chemotherapy treatments as well. Lesions continue to increase in size and multiply and number. Patient is appropriate for inpatient hospice. Please also see Dr. Barnett's note. The plan is to transfer to inpatient hospice in [place] today. (6) Cancer associated pain Is this a current diagnosis for this admission?: Yes Summary: The patient has had long-standing pain. With her bowel obstruction she is now on a EDITORIAL INTERN pump. Oncology has been adjusting the settings. She gets moderate relief with the current settings. She should receive a bolus prior to transport to the hospice facility. Oncology has been adjusting her pump settings. I will defer to them for dosing. - Additional Information Resuscitation Status: Do Not Resuscitate Home Medications: Alprazolam [Xanax 0.5 mg Tablet] 0.5 mg PO DAILYP PRN 03/27/19 Naloxone HCl [Narcan] 4 mg NS ASDIR PRN 03/27/19 Ondansetron [Ondansetron Odt] 8 mg PO Q8HP PRN 03/27/19 Oxycodone HCl [Oxycodone HCl 10 MG Tablet] 10 mg PO Q4HP PRN 03/27/19 Oxycodone Myristate [Xtampza ER] 27 mg PO Q8 03/27/19 Ranitidine HCl [Zantac 150 mg Tablet] 150 mg PO BID 03/27/19 History of Present Illness Admission Date/PCP: 03/27/19 12:18 JASWINDER DAWN PA-C Patient complains of: Intractable nausea vomiting, worsening abdominal pain and widely metastatic soft tissue sarcoma. 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 She was having symptoms without a definitive diagnosis for 2 years and has been diagnosed for 5 years. She has failed multiple regimens of treatments. Today she presents for abdominal pain with intractable nausea and vomiting. She always has a degree of abdominal pain but for the last several days it has been much worse. Other symptoms include chronic constipation with intermittent watery diarrhea. She always feels cold but denies fever or chills. When she is feeling good her appetite is reasonable but it has been quite poor lately. Diagnostic imaging revealed that she has dislocated her mandible anteriorly likely from retching. Dr. Palmer attempted to replace but it dislocated immediately thereafter. This was tried again with subsequent failure. In addition to her diffusely metastatic disease and intussusception in the small bowel was also identified with obstruction. Hospital Course Hospital Course: The patient has had a steady hospital course. The dislocated mandible was unable to be reduced. We are using a Coban dressing to try and keep it and reasonable position. She still has pain. Imaging studies reveal an intussusception with small bowel obstruction. Because of the intractable nausea and vomiting she has a nasogastric tube in place which seems to be managing gastric secretions. Dr. Barnett instituted a EDITORIAL INTERN pump. I have deferred to him for adjustment of dosing. She was referred to hospice and with his guidance she has been accepted to inpatient hospice in [place]. She was able to ex perience the of her grandchild by her [id number]. Her goal was to be available for the . Now that this has occurred she is going to transfer to hospice care. Because of her markedly aggressive underlying disease and current bowel obstruction her life expectancy is in the 7 to 10-day range according to oncology. Aggressive symptom management is the current goal. Other than intr avenous medication she does have Hurricaine spray to try to ease the discomfort of the nasogastric tube in the posterior oropharynx. I believe case management will be arranging transportation but this might be arranged by the hospitalist service as well. Physical Exam Vital Signs: Temp Pulse Resp BP Pulse Ox 97.4 F 99 12 105/67 95 03/28/19 19:16 03/28/19 19:16 03/30/19 04:53 03/28/19 19:16 03/28/19 19:16 Intake & Output 03/29/19 03/30/19 03/31/19 06:59 06:59 06:59 Intake Total 60 140 Output Total 1800 1150 Balance -1740 -1010 General appearance: PRESENT: mild distress, thin, other - Thin, compromised and gaunt 34-year-old female who looks older than her stated age. Covan dressing in place to stabilize mandible. She is quite lethargic. Mouth exam: PRESENT: other - Prognathism from mandible dislocation Respiratory exam: PRESENT: decreased breath sounds - With shallow inspiration, symmetrical. ABSENT: rales, rhonchi, tachypnea, wheezes Cardiovascular exam: PRESENT: +S1, +S2, tachycardia GI/Abdominal exam: PRESENT: diminished bowel sounds, soft, tenderness Rectal exam: PRESENT: deferred Musculoskeletal exam: ABSENT: ambulatory Neurological exam: PRESENT: awake, oriented to person, oriented to place. ABSENT: alert - Quite lethargic Psychiatric exam: PRESENT: flat affect. ABSENT: agitated, anxious Focused psych exam: ABSENT: delusional, restlessness Results Laboratory Results: 03/27/19 07:30 03/27/19 08:18 Impressions: Facial Bones CT 03/27/19 00:00 IMPRESSION: Bilateral dislocation of the temporomandibular joints with dislocation of the mandibular condyles anterior to the articular eminences. No associated fracture. Abdomen/Pelvis CT 03/27/19 07:31 IMPRESSION: Small bowel intussusception in the pelvis, with resulting small bowel obstruction. 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 KUB X-Ray 03/27/19 10:51 IMPRESSION: Nasogastric tube tip and side port in the stomach. Persistent dilated air-filled small bowel loops in the mid abdomen Transfer Plan - Disposition Transfer Plan: The patient will be transferring to inpatient hospice. - Time Spent with Patient Time spent with patient: Greater than 30 Minutes Qualifiers - * PATIENT BEING DISCHARGED WITH ANY OF THE FOLLOWING DIAGNOSIS: No Plan Time Spent: Greater than 30 Minutes
[2019-03-30 10:23] VITALS: BP 119/83
[2019-03-30] MEDS: MORPHINE SULFATE 60 MG/60 ML RTUINJ IV PRN (12:04)
--- NOTE | 2019-03-30 12:14 | PDOC PROGRESS REPORT ---
Subjective Progress Note for:: 03/30/19 Subjective:: No acute events overnight patient still having some pain, this morning we increased her continuous dose to 4 mg/h of morphine, she is doing better with that. She is about to be transferred to [facility]. Reason For Visit: BOWEL OBSTRUCTION,INTUSSUSCEPTION,INTRACTABLE NAUS Physical Exam Vital Signs: Temp Pulse Resp BP Pulse Ox 97.4 F 99 12 119/83 95 03/30/19 10:19 03/30/19 10:19 03/30/19 10:19 03/30/19 10:19 03/30/19 10:19 Intake & Output 03/29/19 03/30/19 03/31/19 06:59 06:59 06:59 Intake Total 60 200 Output Total 1800 1150 Balance -1740 -950 General appearance: PRESENT: no acute distress, well-developed, well-nourished Head exam: PRESENT: atraumatic, normocephalic Eye exam: PRESENT: conjunctiva pink, EOMI, PERRLA. ABSENT: scleral icterus Ear exam: PRESENT: normal external ear exam Mouth exam: PRESENT: moist, tongue midline Neck exam: ABSENT: carotid bruit, JVD, lymphadenopathy, thyromegaly Respiratory exam: PRESENT: clear to auscultation emilia. ABSENT: rales, rhonchi, wheezes Cardiovascular exam: PRESENT: RRR. ABSENT: diastolic murmur, rubs, systolic murmur Pulses: PRESENT: normal dorsalis pedis pul Vascular exam: PRESENT: normal capillary refill GI/Abdominal exam: PRESENT: normal bowel sounds, soft. ABSENT: distended, guarding, mass, organolmegaly, rebound, tenderness Rectal exam: PRESENT: deferred Extremities exam: PRESENT: full ROM. ABSENT: calf tenderness, clubbing, pedal edema Neurological exam: PRESENT: alert, awake, oriented to person, oriented to place, oriented to time, oriented to situation, CN II-XII grossly intact. ABSENT: motor sensory deficit Psychiatric exam: PRESENT: appropriate affect, normal mood. ABSENT: homicidal ideation, suicidal ideation Skin exam: PRESENT: dry, intact, warm. ABSENT: cyanosis, rash Results Laboratory Results: 03/27/19 07:30 03/27/19 08:18 Impressions: Facial Bones CT 03/27/19 00:00 IMPRESSION: Bilateral dislocation of the temporomandibular joints with dislocation of the mandibular condyles anterior to the articular eminences. No associated fracture. Abdomen/Pelvis CT 03/27/19 07:31 IMPRESSION: Small bowel intussusception in the pelvis, with resulting small bowel obstruction. 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 KUB X-Ray 03/27/19 10:51 IMPRESSION: Nasogastric tube tip and side port in the stomach. Persistent dilated air-filled small bowel loops in the mid abdomen Assessment & Plan - Diagnosis (1) Malignant neoplasm of connective or soft tissue Is this a current diagnosis for this admission?: Yes Plan: Hospice transition, DNR given (2) Jaw dislocation Qualifiers: Encounter type: subsequent encounter Qualified Code(s): S03.00XD - Dislocation of jaw, unspecified side, subsequent encounter Is this a current diagnosis for this admission?: Yes Plan: No surgery possible, pain control only (3) Small bowel obstruction Is this a current diagnosis for this admission?: Yes Plan: No surgery possible, symptomatic management only
== END 2019-03-30 14:00 | disposition short-term general hospital (02) | DRG 389 ==
LOC: ER 07:04 → EH 12:18 → 2N 17:07
PROVIDERS: ADMIT Hospitalist; ATTEND Hospitalist
PROC: 0D9670Z Drainage of Stomach with Drainage Device, Via Natural or Artificial Opening (ICD-10-PCS; principal; 2019-03-27)
PROC: 0NSVXZZ Reposition Left Mandible, External Approach (ICD-10-PCS; 2019-03-27)
DX: K56.1 Intussusception (principal); C79.89 Secondary malignant neoplasm of other specified sites; M89.78 Major osseous defect, other site; Z66 Do not resuscitate; G89.3 Neoplasm related pain (acute) (chronic); S03.03XA Dislocation of jaw, bilateral, initial encounter; X58.XXXA Exposure to other specified factors, initial encounter; G43.A1 Cyclical vomiting, in migraine, intractable; Z90.5 Acquired absence of kidney; Z90.49 Acquired absence of other specified parts of digestive tract; Z90.411 Acquired partial absence of pancreas; Z88.6 Allergy status to analgesic agent; Z79.891 Long term (current) use of opiate analgesic; Z88.8 Allergy status to other drugs, medicaments and biological substances; Z87.891 Personal history of nicotine dependence; Z79.899 Other long term (current) drug therapy
CPT/HCPCS: 36415; 70486; 74018; 74177; 80053; 81001; 83690; 85025; 87086; 87088; 96361; 96365; 96375; 99153; 99291; 99152; J0696; J1170; J2060; J2270; J2405; J2550; J2704; J3360; J3490; J7030; J7120; S0164